=== PATIENT | male | born 1945 | race Caucasian/White ===

== ENCOUNTER → 2017-07-28 08:33 | Outpatient (CLI) | payer MEDICARE, OTHER, SELFPAY ==
[2017-07-28 09:57] LABS: Add Manual Diff / Slide Review NO; Eosinophils Percent Auto 4.8 % (2-4); Hematocrit 44.6 % (41-53); Hemoglobin 15.1 g/dL (13.5-17.5); Mean Corpuscular HGB Conc 33.8 % (30-36); Mean Corpuscular Hemoglobin 30.3 PG (26-34); Mean Corpuscular Volume 89.6 fL (80-100); Monocytes Percent Auto 10.2 % (3-14); Neutrophils Absolute Auto 1600 /uL (3000-5900); Platelet Count 209 X10^3/uL (150-400); Red Blood Cell Count 4.98 X10^6/uL (4.5-5.9); Red Cell Distribution Width 14.7 % (11.6-14.8); White Blood Cell Count 3.5 X10^3/uL (4.5-11.0)
[2017-07-28 10:19] LABS: INR 2.6 (0.9-1.3); Prothrombin Time 27.7 SECONDS (10.1-12.7)
== END ==
PROVIDERS: PCP Internal Medicine; Visit Provider Nurse Practitioner Gerontology
DX: I82.A11 Acute embolism and thrombosis of right axillary vein (principal); Z85.820 Personal history of malignant melanoma of skin
CPT/HCPCS: 36415; 85025; 85610

== ENCOUNTER → 2018-01-04 08:45 | Outpatient (CLI) | payer MEDICARE, OTHER, SELFPAY ==
[2018-01-04 09:03] LABS: Add Manual Diff / Slide Review NO; Basophils Percent Auto 1.4 % (0-2); Hematocrit 45.8 % (41-53); Hemoglobin 15.4 g/dL (13.5-17.5); Lymphocytes Percent Auto 33.2 % (25-40); Mean Corpuscular HGB Conc 33.6 % (30-36); Mean Corpuscular Hemoglobin 30.5 PG (26-34); Mean Corpuscular Volume 90.6 fL (80-100); Monocytes Percent Auto 10.1 % (3-14); Neutrophils Absolute Auto 2000 /uL (3000-5900); Neutrophils Percent Auto 50.3 % (50-75); Platelet Count 207 X10^3/uL (150-400); Red Blood Cell Count 5.05 X10^6/uL (4.5-5.9); Red Cell Distribution Width 14.6 % (11.6-14.8)
[2018-01-04 09:11] LABS: INR 2.1 (0.9-1.3); Prothrombin Time 22.8 SECONDS (10.1-12.7)
[2018-01-04 09:22] LABS: Alanine Aminotransferase 24 IU/L (21-72); Albumin Globulin Ratio 1.4 (1.0-2.8); Alkaline Phosphatase 42 U/L (38-126); Aspartate Aminotransferase 25 IU/L (17-59); Blood Urea Nitrogen 16 mg/dL (9-20); Calcium 8.7 mg/dL (8.4-10.2); Carbon Dioxide 25 mmol/L (22-32); Chloride 105 mmol/L (98-107); Estimated Glomerular Filt Rate > 60.0 mL/min (>60); Globulin 2.9 g/dL (1.7-4.1); Glucose 91 mg/dL (80-110); HEMOLYSIS < 15 (0-50); Potassium 4.1 mmol/L (3.4-5.1); Sodium 140 mmol/L (137-145); Total Protein 6.9 g/dL (6.3-8.2)
== END ==
PROVIDERS: Family Provider Internal Medicine; PCP Internal Medicine; Visit Provider Nurse Practitioner Gerontology
DX: I82.401 Acute embolism and thrombosis of unspecified deep veins of right lower extremity (principal); D68.52 Prothrombin gene mutation; Z79.01 Long term (current) use of anticoagulants
CPT/HCPCS: 36415; 80053; 85025; 85610

== ENCOUNTER 2018-01-07 11:30 | Oncology outpatient (ONC) | payer MEDICARE, OTHER, SELFPAY ==
--- NOTE | 2017-07-29 12:51 | ONC.APRN.PN ---
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 Doing quite well on Coumadin, INR remains therapeutic at 2.5. He checks INR at home on a home machine. Dr. Esteban his primary care provider manages his Coumadin. No complaints whatsoever on exam today. No red flags. Continue current dose of Coumadin 10 mg 5 days a week 7.5 mg Sundays and . Return to clinic in 6 months for provider visit CBC, PT/INR. If patient remains stable okay to refer back to primary care seeing as primary care is already managing Coumadin. Patient agrees with this plan of care. 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 He has a hx of recurrent RLE DVT. He continues on coumadin which he has been tolerating well with no adverse effects. he has a macine at home to check INR, he checks every [address] Esteban manages his coumadin. His INR has been therapeutic for several months now not requiring any dose changes. Since his last visit the patient was hospitalized here at [facility] with influenza and bacterial pneumonia. He required a 2 day hospital stay. He has now fully recovered. He recently returned from a 21 day [employer] cruise. No complaints whatsoever on exam today. As noted above INR has been within therapeutic range. No unexplained bleeding or bruising. No swelling. No shortness of breath or chest pain. No dizziness, lightheadedness. Activity tolerance is unchanged. Appetite is unchanged. Ed remains under the care of cardiology Dr Chow for AAA. per pt report stable. Past Medical History The patient's past medical history is significant for: 1) Rght lower extremity DVT in the setting of a heterozygous [id number] mutation carrier. Prothrombin 2 gene mutation identified on 07/07/2016. Diagnosis of DVT confirmed on 05/04/2016 with ultrasound. This reported an echogenic noncompressible thrombus within the mid and lower portions of the superficial femoral vein as well as the popliteal vein. The common femoral and deep femoral veins are normally compressible. Hypercoagulable workup dated 05/13/[address] Stephanie Esteban: Factor V mutation negative. Protein C and S antigen levels were normal at 113 (normal 70-140%) and 119 (normal 70-150), respectively. Dilute Kaleb viper venom test was elevated at 65 (normal is less than 46 seconds). Additional hypercoagulable workup on 07/07/2016 reporting no evidence of an anticardiolipin antibody, beta-2 glycoprotein antibody, antithrombin 3 activity normal at 101%. No evidence of a lupus anticoagulant based on corrected PT mix assay. CT of the chest abdomen pelvis with contrast on 07/07/2016 reporting no evidence of metastatic disease. Mild aneurysmal limitation of the ascending thoracic aorta noted. Patient had adverse skin reaction to rivaroxaban. Tolerates lovenox and warfarin. 2) Left lower extremity DVT 1994. Patient was immobile for two weeks prior to the diagnosis secondary to extensive right thigh skin graft while being treated for active melenoma between peroids [id number]. Patient had been on Coumadin for 5 years. 3) Malignant Melanoma diagnosed 1991 with multiple local recurrences in 1994. Status post treatment regimen with interferon three times/week for one year. Patient has been in remission since 2001. 4) mitral valve regurgitation. 5) aortic root dilatation. Results - Imaging Additional studies: Procedures Other incision with drainage of skin and subcutaneous tissue (12/17/10) Replacement of Left Hip Joint with Metal on Polyethylene Synthetic Substitute, Open Approach (09/12/16) Replacement of Right Hip Joint with Metal on Polyethylene Synthetic Substitute, Open Approach (04/03/16) Total knee replacement (11/22/12) Home Medications and Allergies Home Medications Medication Instructions Recorded Confirmed Type tamsulosin [Flomax] 2 cap PO HS #0 03/24/16 History aspirin 81 mg PO QDAY #0 07/15/16 History metoprolol succinate [Toprol XL] 25 mg PO HS #0 08/25/16 History levothyroxine [Synthroid] 25 mcg PO QDAY #0 01/30/17 History amoxicillin-pot clavulanate 875 mg PO BID #14 tab 04/05/17 Rx [Augmentin] oseltamivir [Tamiflu] 75 mg PO BID #4 cap 04/05/17 Rx warfarin [Coumadin] 7.5 mg PO 1700 #30 tab 04/05/17 Rx Allergies Allergy/AdvReac Type Severity Reaction Status Date / Time rivaroxaban [From XARELTO] Allergy Severe SKIN RASH Unverified 06/10/17 13:04 iodine [IODINE] AdvReac Severe NAUSEA/VOMITING, Unverified 06/10/17 13:04 TOPICAL APPLICATION OK Exam Narrative: well appearing - Constitutional positive no acute distress, positive average body habitus - Routine HEENT Exam Head: Present: normocephalic, atraumatic Eye: Present: EOMI, PERRL, normal accommodation ENT: Present: mucous membranes moist - Routine Neck Exam Present: supple. Absent: JVD, lymphadenopathy - Routine Respiratory Exam Present: Clear to auscultation bilaterally - Routine Cardiovascular Exam Present: RRR, S1, S2 - Routine Abdominal Exam Present: soft, normoactive bowel sounds. Absent: tenderness, distended, organomegaly - Routine Extremities Exam Absent: cyanosis, clubbing, edema, calf tenderness - Routine Skin Exam Present: intact, normal turgor. Absent: petechiae - Routine Neurological Exam Present: alert, oriented X3 - Routine Psychiatric Exam Present: normal affect
--- NOTE | 2017-07-29 12:56 | P.PNONC_ITS ---
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 Doing quite well on Coumadin, INR remains therapeutic at 2.5. He checks INR at home on a home machine. Dr. Esteban his primary care provider manages his Coumadin. No complaints whatsoever on exam today. No red flags. Continue current dose of Coumadin 10 mg 5 days a week 7.5 mg Sundays and . Return to clinic in 6 months for provider visit CBC, PT/INR. If patient remains stable okay to refer back to primary care seeing as primary care is already managing Coumadin. Patient agrees with this plan of care. 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 He has a hx of recurrent RLE DVT. He continues on coumadin which he has been tolerating well with no adverse effects. he has a macine at home to check INR, he checks every [address] Esteban manages his coumadin. His INR has been therapeutic for several months now not requiring any dose changes. Since his last visit the patient was hospitalized here at [facility] with influenza and bacterial pneumonia. He required a 2 day hospital stay. He has now fully recovered. He recently returned from a 21 day [employer] cruise. No complaints whatsoever on exam today. As noted above INR has been within therapeutic range. No unexplained bleeding or bruising. No swelling. No shortness of breath or chest pain. No dizziness, lightheadedness. Activity tolerance is unchanged. Appetite is unchanged. Ed remains under the care of cardiology Dr Chow for AAA. per pt report stable . Past Medical History The patient's past medical history is significant for: 1) Rght lower extremity DVT in the setting of a heterozygous [id number] mutation carrier. Prothrombin 2 gene mutation identified on 07/07/2016. Diagnosis of DVT confirmed on 05/04/2016 with ultrasound. This reported an echogenic noncompressible thrombus within the mid and lower portions of the superficial femoral vein as well as the popliteal vein. The common femoral and deep femoral veins are normally compressible. Hypercoagulable workup dated 05/13/[address] Stephanie Esteban: Factor V mutation negative. Protein C and S antigen levels were normal at 113 (normal 70-140%) and 119 (normal 70-150), respectively. Dilute Kaleb viper venom test was elevated at 65 (normal is less than 46 seconds). Additional hypercoagulable workup on 07/07/2016 reporting no evidence of an anticardiolipin antibody, beta-2 glycoprotein antibody, antithrombin 3 activity normal at 101%. No evidence of a lupus anticoagulant based on corrected PT mix assay. CT of the chest abdomen pelvis with contrast on 07/07/2016 reporting no evidence of metastatic disease. Mild aneurysmal limitation of the ascending thoracic aorta noted. Patient had adverse skin reaction to rivaroxaban. Tolerates lovenox and warfarin. 2) Left lower extremity DVT 1994. Patient was immobile for two weeks prior to the diagnosis secondary to extensive right thigh skin graft while being treated for active melenoma between peroids [id number]. Patient had been on Coumadin for 5 years. 3) Malignant Melanoma diagnosed 1991 with multiple local recurrences in 1994. Status post treatment regimen with interferon three times/week for one year. Patient has been in remission since 2001. 4) mitral valve regurgitation. 5) aortic root dilatation. Results - Imaging Additional studies: Procedures Other incision with drainage of skin and subcutaneous tissue (12/17/10) Replacement of Left Hip Joint with Metal on Polyethylene Synthetic Substitute, Open Approach (09/12/16) Replacement of Right Hip Joint with Metal on Polyethylene Synthetic Substitute, Open Approach (04/03/16) Total knee replacement (11/22/12) Home Medications and Allergies Home Medications Medication Instructions Recorded Confirmed Type tamsulosin [Flomax] 2 cap PO HS #0 03/24/16 History aspirin 81 mg PO QDAY #0 07/15/16 History metoprolol succinate [Toprol XL] 25 mg PO HS #0 08/25/16 History levothyroxine [Synthroid] 25 mcg PO QDAY #0 01/30/17 History amoxicillin-pot clavulanate 875 mg PO BID #14 tab 04/05/17 Rx [Augmentin] oseltamivir [Tamiflu] 75 mg PO BID #4 cap 04/05/17 Rx warfarin [Coumadin] 7.5 mg PO 1700 #30 tab 04/05/17 Rx Allergies Allergy/AdvReac Type Severity Reaction Status Date / Time rivaroxaban [From XARELTO] Allergy Severe SKIN RASH Unverified 06/10/17 13:04 iodine [IODINE] AdvReac Severe NAUSEA/VOMITING, Unverified 06/10/17 13:04 TOPICAL APPLICATION OK Exam Narrative: well appearing - Constitutional positive no acute distress, positive average body habitus - Routine HEENT Exam Head: Present: normocephalic, atraumatic Eye: Present: EOMI, PERRL, normal accommodation ENT: Present: mucous membranes moist - Routine Neck Exam Present: supple. Absent: JVD, lymphadenopathy - Routine Respiratory Exam Present: Clear to auscultation bilaterally - Routine Cardiovascular Exam Present: RRR, S1, S2 - Routine Abdominal Exam Present: soft, normoactive bowel sounds. Absent: tenderness, distended, organomegaly - Routine Extremities Exam Absent: cyanosis, clubbing, edema, calf tenderness - Routine Skin Exam Present: intact, normal turgor. Absent: petechiae - Routine Neurological Exam Present: alert, oriented X3 - Routine Psychiatric Exam Present: normal affect
[2017-07-29 13:49] VITALS: BP 132/78; PULSE 60; RESP 18; TEMP 36.3; O2SAT 98
[2017-07-29 13:53] VITALS: BP 132/78; PULSE 60; RESP 18; TEMP 36.3; O2SAT 98
[2018-01-07 11:41] VITALS: BP 120/88; PULSE 72; RESP 18; TEMP 36.3; O2SAT 98
--- NOTE | 2018-01-07 11:59 | P.PNONC_ITS ---
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 He has a hx of recurrent RLE DVT. He continues on coumadin which he has been tolerating well with no adverse effects. he has a macine at home to check INR, he checks every [address] Esteban manages his coumadin. His INR has been therapeutic for several months now not requiring any dose changes. No complaints whatsoever on exam today. As noted above INR has been within therapeutic range. No unexplained bleeding or bruising. No swelling. No shortness of breath or chest pain. No dizziness, lightheadedness. Activity tolerance is unchanged. Appetite is unchanged. Ed remains under the care of cardiology Dr Chow for AAA. per pt report stable . PCP is Dr Stephanie Esteban Past Medical History The patient's past medical history is significant for: 1) Rght lower extremity DVT in the setting of a heterozygous [id number] mutation carrier. Prothrombin 2 gene mutation identified on 07/07/2016. Diagnosis of DVT confirmed on 05/04/2016 with ultrasound. This reported an echogenic noncompressible thrombus within the mid and lower portions of the superficial femoral vein as well as the popliteal vein. The common femoral and deep femoral veins are normally compressible. Hypercoagulable workup dated 05/13/[address] Stephanie Esteban: Factor V mutation negative. Protein C and S antigen levels were normal at 113 (normal 70-140%) and 119 (normal 70-150), respectively. Dilute Kaleb viper venom test was elevated at 65 (normal is less than 46 seconds). Additional hypercoagulable workup on 07/07/2016 reporting no evidence of an anticardiolipin antibody, beta-2 glycoprotein antibody, antithrombin 3 activity normal at 101%. No evidence of a lupus anticoagulant based on corrected PT mix assay. CT of the chest abdomen pelvis with contrast on 07/07/2016 reporting no evidence of metastatic disease. Mild aneurysmal limitation of the ascending thoracic aorta noted. Patient had adverse skin reaction to rivaroxaban. Tolerates lovenox and warfarin. 2) Left lower extremity DVT 1994. Patient was immobile for two weeks prior to the diagnosis secondary to extensive right thigh skin graft while being treated for active melenoma between peroids [id number]. Patient had been on Coumadin for 5 years. 3) Malignant Melanoma diagnosed 1991 with multiple local recurrences in 1994. Status post treatment regimen with interferon three times/week for one year. Patient has been in remission since 2001. 4) mitral valve regurgitation. 5) aortic root dilatation. Home Medications and Allergies Home Medications Medication Instructions Recorded Confirmed Type tamsulosin [Flomax] 2 cap PO HS #0 03/24/16 History aspirin 81 mg PO QDAY #0 07/15/16 History metoprolol succinate [Toprol XL] 25 mg PO HS #0 08/25/16 History levothyroxine [Synthroid] 25 mcg PO QDAY #0 01/30/17 History warfarin [Coumadin] 40 mg PO 1700 01/07/18 History Allergies Allergy/AdvReac Type Severity Reaction Status Date / Time rivaroxaban [From XARELTO] Allergy Severe SKIN RASH Unverified 06/10/17 13:04 iodine [IODINE] AdvReac Severe NAUSEA/VOMITING, Unverified 06/10/17 13:04 TOPICAL APPLICATION OK Exam - Constitutional positive no acute distress - Routine HEENT Exam Eye: Present: conjunctivae pink. Absent: conjunctival icterus, scleral injection ENT: Present: mucous membranes moist, oropharynx clear - Routine Neck Exam Present: supple. Absent: lymphadenopathy - Routine Respiratory Exam Present: Clear to auscultation bilaterally. Absent: rales, rhonchi, wheezes - Routine Cardiovascular Exam Present: RRR. Absent: JVD - Routine Abdominal Exam Present: soft, normoactive bowel sounds. Absent: tenderness, distended, organomegaly - Routine Extremities Exam Absent: edema, calf tenderness - Routine Skin Exam Present: intact, normal turgor. 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 He has a hx of recurrent RLE DVT. he remains on coumadin he has a home machine he checks his INR it routinely is about 2.1- 2.3. INR today 2.1. No clinical signs or symptoms to suggest recurrent thrombosis. Per pt request will RTC in one year for provider visit cbc cmp INR - Time Spent with Patient 25 mins
== END 2018-01-08 12:00 ==
PROVIDERS: Family Provider Internal Medicine; PCP Internal Medicine; Visit Provider Nurse Practitioner Gerontology
DX: I82.401 Acute embolism and thrombosis of unspecified deep veins of right lower extremity (principal); D68.52 Prothrombin gene mutation; Z79.01 Long term (current) use of anticoagulants; Z85.820 Personal history of malignant melanoma of skin
CPT/HCPCS: 99214

== ENCOUNTER → 2018-12-14 10:32 | Outpatient (CLI) | payer MEDICARE, OTHER, SELFPAY ==
[2018-12-14 11:54] LABS: BUN Creatinine Ratio 18.9 (6-22); Blood Urea Nitrogen 17 mg/dL (9-20); Calcium 8.9 mg/dL (8.4-10.2); Carbon Dioxide 27 mmol/L (22-32); Chloride 104 mmol/L (98-107); Estimated Glomerular Filt Rate > 60.0 mL/min (>60); Glucose 87 mg/dL (80-110); HEMOLYSIS 15 (0-50); Potassium 4.4 mmol/L (3.4-5.1); Sodium 137 mmol/L (137-145)
== END ==
PROVIDERS: Family Provider Internal Medicine; PCP Internal Medicine; Visit Provider Internal Medicine Cardiovascular Disease
DX: R01.1 Cardiac murmur, unspecified (principal); I34.0 Nonrheumatic mitral (valve) insufficiency; I71.2 Thoracic aortic aneurysm, without rupture
CPT/HCPCS: 36415; 80048

== ENCOUNTER → 2018-12-30 08:55 | Outpatient (CLI) | payer MEDICARE, OTHER, SELFPAY ==
[2018-12-30 09:59] LABS: Alanine Aminotransferase 19 IU/L (21-72); Aspartate Aminotransferase 28 IU/L (17-59); Cholesterol 241 mg/dL (140-199); HDL Cholesterol 58 mg/dL (40-60); LDL Cholesterol Calculated 158 mg/dL (<100); Triglycerides 124 mg/dL (35-150)
[2018-12-30 10:34] LABS: TSH w/ Reflex to FT4 4.86 uIU/mL (0.47-4.68)
[2018-12-30 11:02] LABS: Free T4, Direct Thyroxine 0.88 ng/dL (0.78-2.19)
[2018-12-30 15:52] LABS: Prostate Specific Antigen 2.27 ng/mL (0.10-4.00)
== END ==
PROVIDERS: PCP Internal Medicine; Visit Provider Internal Medicine
DX: Z12.5 Encounter for screening for malignant neoplasm of prostate (principal); E78.5 Hyperlipidemia, unspecified; E03.9 Hypothyroidism, unspecified
CPT/HCPCS: 36415; 80061; 84153; 84439; 84443; 84450; 84460; G0103

== ENCOUNTER → 2019-03-03 09:04 | Outpatient (CLI) | payer MEDICARE, OTHER, SELFPAY ==
[2019-03-03 10:10] LABS: Alanine Aminotransferase 24 IU/L (<50); Aspartate Aminotransferase 27 IU/L (17-59); Cholesterol 180 mg/dL (140-199); HDL Cholesterol 61 mg/dL (40-60); LDL Cholesterol Calculated 99 mg/dL (<100); Triglycerides 101 mg/dL (35-150)
[2019-03-03 10:44] LABS: TSH w/ Reflex to FT4 2.34 uIU/mL (0.47-4.68)
== END ==
PROVIDERS: PCP Internal Medicine; Visit Provider Internal Medicine
DX: E78.5 Hyperlipidemia, unspecified (principal)
CPT/HCPCS: 36415; 80061; 84443; 84450; 84460

== ENCOUNTER 2019-04-06 08:20 | Day surgery (SDC) | payer MEDICARE, OTHER, SELFPAY ==
--- NOTE | 2019-04-06 | PATH_ITS ---
[facility] Accession Number: [id number] . 01 Material submitted: . PART A: colon - ASCENDING COLON POLYP X2 PART B: colon - DESCENDING COLON POLYP . 02 Diagnosis: A. Ascending Colon, Polyps x2, Biopsies: Sessile serrated adenomas. . B. Descending Colon, Polyp, Biopsy: Tubular adenoma. MRV 04/07/2019 1516 Local . 02 Electronically signed: . Leanna Duval MD, Pathologist NPI- [id number] . 01 Gross description: . Part A: ASCENDING COLON POLYP X2: Received in formalin are multiple fragment(s) of garcia, soft tissue measuring 0.1 x 0.1 x 0.1 cm to 0.6 x 0.4 x 0.4 cm submitted entirely in 1 cassette(s) Part B: DESCENDING COLON POLYP: Received in formalin is 1 fragment(s) of garcia, soft tissue measuring 0.4 x 0.3 x 0.2 cm submitted entirely in 1 cassette(s) /[facility] 04/06/2019 1938 Local . 02 Pathologist provided ICD-10: D12.2, D12.4 . 02 CPT . 777511, [id number] Performed at: 01 [facility] [address], [place], [place] [id number] MD Denys Post MD Phone: [phone] Performed at: 02 [facility] [address] [place], [place] [id number] MD Leanna Duval MD Phone: [phone]
[2019-04-06 08:36] VITALS: BP 144/81; PULSE 78; RESP 16; TEMP 36.2; O2SAT 97; BMI 33.2
[2019-04-06] MEDS: SODIUM CHLORIDE 0.9% 1,000 ML 84 ML IV (08:45)
--- NOTE | 2019-04-06 10:01 | PM.HP.1 ---
History of Present Illness History of Present Illness Chief complaint: [id number] SCREENING COLONOSCOPY Patient History Family & Social History Social History: household members spouse Tobacco & Substance use: Smoking Status Never smoker alcohol intake frequency a few times a week Substance Use Type does not use Meds Home Medications and Allergies Home Medications Medication Instructions Recorded Confirmed Type tamsulosin [Flomax] 2 cap PO HS #0 03/24/16 04/06/19 History aspirin 81 mg PO QDAY #0 07/15/16 04/06/19 History metoprolol succinate [Toprol XL] 25 mg PO HS #0 08/25/16 04/06/19 History levothyroxine [Synthroid] 25 mcg PO QDAY #0 01/30/17 04/06/19 History warfarin [Coumadin] 40 mg PO 1700 01/07/18 04/06/19 History Allergies Allergy/AdvReac Type Severity Reaction Status Date / Time rivaroxaban [From XARELTO] Allergy Severe SKIN RASH Verified 04/06/19 08:31 iodine [IODINE] AdvReac Severe NAUSEA/VOMITING, Verified 04/06/19 08:31 TOPICAL APPLICATION OK Review of Systems Review of Systems ROS: Yes All systems reviewed with the patient and are negative except as otherwise documented Exam Vital Signs (past 8 hours): - 04/06/19 08:36 Temperature 97.2 F L Pulse Rate 78 Respiratory Rate 16 Blood Pressure 144/81 H Pulse Oximetry 97 Oxygen Delivery Method Room Air Narrative Exam Narrative: Awake alert and oriented x3, no acute distress, lungs clear to auscultation bilaterally, heart regular rate and rhythm, no lower extremity edema Assessment & Plan Assessment & Plan narrative: Colon cancer screening, for colonoscopy
[2019-04-06] MEDS: MIDAZOLAM 5 MG/5 ML VIAL IV (10:16)
[2019-04-06] MEDS: fentaNYL 250 MCG/5 ML INJ IV (10:16)
[2019-04-06 10:46] VITALS: BP 131/75; PULSE 56; RESP 17; TEMP 36.1; O2SAT 97
--- NOTE | 2019-04-06 10:50 | PM.OP.ENDO ---
Operative Date/Time/Diagnoses Date of procedure: 04/06/19 Procedure & Clinicians Study performed: Colonoscopy with snare polypectomy Moderate conscious sedation was administered by the endoscopy nurse and supervised by the endoscopist. The following parameters were monitored: Oxygen saturation, heart rate, blood pressure, and response to care. Sedation totals: 5 mg midazolam, 100 mcg fentanyl Indications: Colon cancer screening. No prior colonoscopy Procedure Notes Procedure in detail: Prior to the procedure, history and physical was performed, and patient medications and allergies were reviewed. Preprocedure nursing history and assessment was reviewed. Patient identification and proposed procedure were verified by the physician and nurse in the procedure room. The physical status of the patient was reassessed after the procedure. After informed consent was obtained including risks, benefits, and alternatives, the scope was passed under direct vision. Throughout the procedure, the patient's blood pressure, pulse, and oxygen saturations were monitored continuously. The colonoscope was introduced through the anus and advanced to the cecum as identified by the appendiceal orifice and ileocecal valve. The patient tolerated the procedure well. Bowel prep was deemed adequate to detect polyps greater than 5 mm, but prep was fair prior to lavage. Digital rectal examination and perianal examination were unremarkable. Retroflexion in the rectum was unrevealing. A 16 mm sessile polyp in the ascending colon was injected for lift with saline and removed in piecemeal with a hot and cold snare. Polypectomy was complete and tissue was retrieved. Two hemoclips were applied to the polypectomy site to prevent bleeding (MRI conditional) Two 5 mm sessile polyps were removed from the ascending and descending colon with a cold snare and retrieved. A few medium mouth diverticula were noted in the sigmoid colon Impression: 16 mm polyp removed from the ascending colon. Two Hemoclips applied to the polypectomy site to prevent bleeding Two 5 mm polyps removed from the ascending and descending colon Sigmoid colon diverticulosis Sedation minutes: 38 Complications: other (EBL minimal. No complications) Post-procedure Plan for aftercare: Follow-up pathology results Repeat colonoscopy at a date to be determined based on pathology results High fiber diet Resume all medications Resume Coumadin tomorrow Discharge home with escort
[2019-04-06 10:51] VITALS: BP 122/79; PULSE 73; RESP 15; O2SAT 98
[2019-04-06 10:56] VITALS: BP 126/64; PULSE 58; RESP 13; O2SAT 99
[2019-04-06 11:10] VITALS: BP 137/80; PULSE 59; RESP 14; TEMP 36.1; O2SAT 96
== END 2019-04-06 10:22 | disposition home or self-care (01) ==
PROVIDERS: PCP Internal Medicine; Referring Provider Internal Medicine; Visit Provider Internal Medicine
PROC: 0DJD8ZZ Inspection of Lower Intestinal Tract, Via Natural or Artificial Opening Endoscopic (ICD-10-PCS; CPT 45378; principal; 2019-04-06 09:30)
DX: Z12.11 Encounter for screening for malignant neoplasm of colon (principal); D75.9 Disease of blood and blood-forming organs, unspecified; Z86.718 Personal history of other venous thrombosis and embolism; Z79.01 Long term (current) use of anticoagulants; K57.30 Diverticulosis of large intestine without perforation or abscess without bleeding; D12.2 Benign neoplasm of ascending colon; D12.4 Benign neoplasm of descending colon
CPT/HCPCS: 45385; 45381; J2250; J3010

== ENCOUNTER → 2020-01-17 14:39 | Outpatient (ROUT) | payer MEDICARE, OTHER, SELFPAY ==
[2020-01-17 14:58] LABS: Alanine Aminotransferase 24 IU/L (<50); Albumin 4.1 g/dL (3.5-5.0); Albumin Globulin Ratio 1.4 (1.0-2.8); Alkaline Phosphatase 56 U/L (38-126); Aspartate Aminotransferase 31 IU/L (17-59); BUN Creatinine Ratio 19.5 (6-22); Bilirubin Total 1.3 mg/dL (0.2-1.3); Blood Urea Nitrogen 17 mg/dL (9-20); Calcium 9.1 mg/dL (8.4-10.2); Carbon Dioxide 29 mmol/L (22-32); Chloride 107 mmol/L (98-107); Cholesterol 175 mg/dL (140-199); Estimated Glomerular Filt Rate > 60.0 mL/min (>60); Globulin 2.9 g/dL (1.7-4.1); Glucose 91 mg/dL (80-110); HDL Cholesterol 62 mg/dL (40-60); HEMOLYSIS < 15 (0-50); LDL Cholesterol Calculated 94 mg/dL (<100); Potassium 4.6 mmol/L (3.4-5.1); Sodium 139 mmol/L (137-145); Triglycerides 93 mg/dL (35-150)
[2020-01-17 15:27] LABS: TSH w/ Reflex to FT4 3.02 uIU/mL (0.47-4.68)
== END ==
PROVIDERS: PCP Internal Medicine; Visit Provider Internal Medicine
DX: E78.5 Hyperlipidemia, unspecified (principal); E03.9 Hypothyroidism, unspecified; I10 Essential (primary) hypertension
CPT/HCPCS: 80053; 80061; 84443

== ENCOUNTER → 2020-03-29 08:34 | Outpatient (CLI) | payer MEDICARE, OTHER, SELFPAY ==
[2020-03-29 09:38] LABS: Appearance Urine UA SL CLOUDY; Bilirubin Urine UA NEGATIVE (NEGATIVE); Color Urine UA YELLOW; Glucose Urine UA NEGATIVE (Negative); Ketones Urine UA NEGATIVE (NEGATIVE); Leukocyte Esterase Urine UA 2+ (NEGATIVE); Nitrite Urine UA POSITIVE (Negative); Occult Blood Urine UA TRACE-INTACT (Negative); Protein Urine UA NEGATIVE (Negative); Urobilinogen Urine UA 0.2 E.U./dL (0.2)
[2020-03-29 10:16] LABS: RBC Urine 1-5/HPF (0-5/HPF)
[2020-03-29 10:17] LABS: Bacteria Urine Many (>30); Culture Indicated Urine Specimen Cultured; WBC Urine 10-30/HPF (0-5/HPF)
== END ==
PROVIDERS: PCP Internal Medicine; Referring Provider Student in an Organized Health Care Education/Training Program; Visit Provider Student in an Organized Health Care Education/Training Program
DX: N40.1 Benign prostatic hyperplasia with lower urinary tract symptoms (principal)
CPT/HCPCS: 81001; 87077; 87086; 87186

== ENCOUNTER → 2020-07-31 14:43 | Outpatient (ROUT) | payer MEDICARE, OTHER, SELFPAY ==
[2020-07-31 15:12] LABS: Alanine Aminotransferase 27 IU/L (<50); Albumin 3.7 g/dL (3.5-5.0); Albumin Globulin Ratio 1.4 (1.0-2.8); Alkaline Phosphatase 49 U/L (38-126); Aspartate Aminotransferase 32 IU/L (17-59); Bilirubin Total 1.1 mg/dL (0.2-1.3); Blood Urea Nitrogen 18 mg/dL (9-20); Calcium 9.1 mg/dL (8.4-10.2); Carbon Dioxide 29 mmol/L (22-32); Chloride 104 mmol/L (98-107); Estimated Glomerular Filt Rate > 60.0 mL/min (>60); Globulin 2.7 g/dL (1.7-4.1); Glucose 81 mg/dL (80-110); HEMOLYSIS < 15 (0-50); Potassium 4.4 mmol/L (3.4-5.1); Sodium 138 mmol/L (137-145); Total Protein 6.4 g/dL (6.3-8.2)
== END ==
PROVIDERS: PCP Internal Medicine; Visit Provider Internal Medicine
DX: R11.0 Nausea (principal)
CPT/HCPCS: 80053

== ENCOUNTER → 2020-11-19 16:41 | Outpatient (CLI) | payer MEDICARE, OTHER, SELFPAY ==
[2020-11-19 17:30] LABS: Add Manual Diff / Slide Review NO; Basophils Absolute Auto 100 /uL (0-100); Basophils Percent Auto 1.2 % (0-2); Eosinophils Absolute Auto 300 /uL (0-450); Eosinophils Percent Auto 4.1 % (2-4); Hematocrit 43.1 % (41-53); Hemoglobin 14.1 g/dL (13.5-17.5); Lymphocytes Absolute Auto 1900 /uL (1100-4500); Lymphocytes Percent Auto 26.5 % (25-40); Mean Corpuscular HGB Conc 32.8 % (30-36); Mean Corpuscular Hemoglobin 29.9 PG (26-34); Mean Corpuscular Volume 90.9 fL (80-100); Monocytes Absolute Auto 800 /uL (0-900); Monocytes Percent Auto 11.1 % (3-14); Neutrophils Absolute Auto 4000 /uL (1500-7000); Neutrophils Percent Auto 57.1 % (50-75); Platelet Count 233 X10^3/uL (150-400); Red Blood Cell Count 4.73 X10^6/uL (4.5-5.9); Red Cell Distribution Width 14.3 % (11.6-14.8)
== END ==
PROVIDERS: PCP Internal Medicine; Referring Provider Naturopath; Visit Provider Naturopath
DX: Z08 Encounter for follow-up examination after completed treatment for malignant neoplasm (principal); Z85.820 Personal history of malignant melanoma of skin
CPT/HCPCS: 36415; 85025

== ENCOUNTER → 2020-12-25 09:20 | Outpatient (CLI) | payer MEDICARE, OTHER, SELFPAY ==
[2020-12-25 10:18] LABS: Alanine Aminotransferase 23 IU/L (<50); Albumin 3.9 g/dL (3.5-5.0); Albumin Globulin Ratio 1.5 (1.0-2.8); Alkaline Phosphatase 49 U/L (38-126); Aspartate Aminotransferase 27 IU/L (17-59); Bilirubin Total 0.7 mg/dL (0.2-1.3); Bilirubin Unconjugated 0.7 mg/dL (0.0-1.1); Globulin 2.6 g/dL (1.7-4.1); HEMOLYSIS < 15 (0-50); Total Protein 6.5 g/dL (6.3-8.2)
== END ==
PROVIDERS: Family Provider Internal Medicine; PCP Internal Medicine; Referring Provider Physician Assistant; Visit Provider Physician Assistant
DX: B35.1 Tinea unguium (principal)
CPT/HCPCS: 36415; 80076

== ENCOUNTER → 2021-01-01 12:28 | Outpatient (CLI) | payer MEDICARE, OTHER, SELFPAY ==
--- NOTE | 2021-01-01 12:29 | DI.US.S_ITS ---
PROCEDURE: US ABDOMEN LIMITED INDICATIONS: Left abdominal wall subcu mass, h/o met melanoma TECHNIQUE: Real-time focused scanning was performed of the abdomen, with image documentation. COMPARISON: None. FINDINGS: Focused ultrasound examination of left lateral abdominal wall shows a 4 x 2.5 x 5.8 cm structure isoechoic to adjacent subcutaneous fat and show no internal vascularity. IMPRESSION: Finding likely represent lipoma in left lateral abdominal wall. Clinical and sonographic follow-up is recommended. Dictated by: Narinder Martin M.D. on 01/01/2021 at 13:52 Approved by: Narinder Martin M.D. on 01/01/2021 at 13:53
== END ==
PROVIDERS: Family Provider Internal Medicine; PCP Internal Medicine; Referring Provider Internal Medicine Hematology & Oncology; Visit Provider Internal Medicine Hematology & Oncology
DX: R22.2 Localized swelling, mass and lump, trunk (principal); Z85.820 Personal history of malignant melanoma of skin; C79.9 Secondary malignant neoplasm of unspecified site
CPT/HCPCS: 76705

== ENCOUNTER 2021-01-28 08:17 | Emergency (ER) | payer MEDICARE, OTHER, SELFPAY ==
[2021-01-28 08:31] VITALS: BP 133/86; PULSE 57; RESP 18; O2SAT 96; BMI 33.8
--- NOTE | 2021-01-28 08:43 | DI.RAD.S_ITS ---
PROCEDURE: XR MANDIBLE MIN 4V INDICATIONS: Right side pain TECHNIQUE: 4 views of the mandible were acquired. COMPARISON: None. FINDINGS: Bones: No fractures or dislocations. No suspicious bony lesions. Age-appropriate bony degenerative changes are seen. Soft tissues: Visualized sinuses appear clear. No suspicious soft tissue densities. IMPRESSION: No significant plain film abnormality is seen. If it would be helpful for clinical management decision making in this patient with this given history, please consider a dedicated maxillofacial CT or TMJ protocol MRI for further evaluation (assuming that there is no contraindication). Dictated by: Kobi De Oliveira M.D. on 01/28/2021 at 8:18 Approved by: Kobi De Oliveira M.D. on 01/28/2021 at 8:20
--- NOTE | 2021-01-28 08:43 | ED.GENADULT ---
HPI - General Adult General Chief complaint: Dental/Oral Stated complaint: Swelling rt side of face, can't close jaw Time Seen by Provider: 01/28/21 08:32 History of Present Illness HPI narrative: Patient here with . Complains of right jaw pain that started yesterday and worsened over night. Has not take any medications for this. Patient has focal localized pain at the TMJ joint on the right side. No rash. Hurts to move and open the mouth. No known injury. No dental pain. No facial swelling. No hearing changes/ear pain Related Data Home Medications Medication Instructions Recorded Confirmed aspirin 81 mg tablet,delayed 81 mg PO QDAY #0 07/15/16 01/17/21 release metoprolol succinate 25 mg 25 mg PO HS #0 08/25/16 01/17/21 tablet,extended release 24 hr (Toprol XL) levothyroxine 25 mcg tablet 25 mcg PO QDAY #0 01/30/17 01/17/21 (Synthroid) warfarin 5 mg tablet (Coumadin) 40 mg PO 1700 01/07/18 01/17/21 atorvastatin 10 mg tablet 10 mg PO DAILY 12/27/20 01/17/21 coenzyme Q10 100 mg capsule 100 mg PO DAILY 12/27/20 01/17/21 (CoQ-10) ketoconazole 2 % topical cream 1 applic TOPICAL DAILY 12/27/20 01/17/21 terbinafine HCl 250 mg tablet 250 mg PO DAILY 12/27/20 01/17/21 Previous Rx's Medication Instructions Recorded hydrocodone 5 mg-acetaminophen 325 1 tab PO Q6H PRN #16 tab 01/28/21 mg tablet ondansetron 4 mg disintegrating 4 mg PO Q8H PRN #10 tab 01/28/21 tablet Allergies Allergy/AdvReac Type Severity Reaction Status Date / Time rivaroxaban [From XARELTO] Allergy Severe SKIN RASH Verified 04/06/19 08:31 iodine [IODINE] AdvReac Severe NAUSEA/VOMITING, Verified 04/06/19 08:31 TOPICAL APPLICATION OK Review of Systems Review of Systems Narrative: GENERAL: Denies chills, fatigue, malaise, fever, sweats. 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 EYES: Pupils equal round No scleral icterus. ENT: Mucous membranes moist. No dental tenderness or intraoral swelling or abscess. Face is grossly symmetric. There is focal tenderness to the right TMJ joint. Pain with opening mouth but there is no trismus or malocclusion. No tongue elevation. Examination right ear TM is clear. Tragus nontender. No canal swelling or discharge or edema or erythema. No rash on the right side face. No right temporal tenderness. NECK: Trachea midline. No submandibular tenderness or swelling or erythema. NEURO: AOx4. SKIN: Warm and dry PSYCH: Not anxious, is cooperative Initial Vital Signs Initial Vital Signs: Vital Signs Pulse Rate 57 L 01/28/21 08:31 Respiratory Rate 18 01/28/21 08:31 Blood Pressure 133/86 01/28/21 08:31 Pulse Oximetry 96 01/28/21 08:31 Course Course Course Narrative: No new issues during course of stay. Orders Ordered: Discontinued Medications Hydrocodone Bitart/Acetaminophen (Hydrocodone/Acet 5/325 Tablet) 1 tab PO NOW ONE Stop: 01/28/21 08:42 Last Admin: 01/28/21 08:52 Dose: 1 tab Documented by: FERNANDA Ondansetron HCl (Ondansetron 4 Mg Odt) 4 mg SL NOW ONE Stop: 01/28/21 08:42 Last Admin: 01/28/21 08:52 Dose: 4 mg Documented by: FERNANDA Reevaluation(s) Reevaluation #1: Reviewed results with patient and . Pain has improved. They agree for follow-up with Oral maxillofacial provided. Referral given. Vital Signs Vital signs: Vital Signs - 8 hr 01/28/21 08:31 Pulse Rate 57 L Respiratory Rate 18 Blood Pressure 133/86 Pulse Oximetry 96 Medical Decision Making Differential Diagnosis Differential Diagnosis: Herpes zoster/otitis externa/temporal arteritis/TMJ. Imaging Data X-ray mandible: Radiologist's Impression: [address] [address] XRay Report Signed Patient: Solomon Ma MR#: [id number] : 1945 Acct:[id number] Age/Sex: 75 / M Date of Service: 01/28/21 Loc: ED Accession Number: [id number] ?? Procedure: XR mandible min 4V Ordering Provider: Mika Morris MD PROCEDURE:? XR MANDIBLE MIN 4V ? INDICATIONS:? Right side pain ? TECHNIQUE:? 4 views of the mandible were acquired.? ? COMPARISON:? None. ? FINDINGS:? ? Bones:? No fractures or dislocations.? No suspicious bony lesions.? Age-appropriate bony degenerative changes are seen.? ? Soft tissues:? Visualized sinuses appear clear.? No suspicious soft tissue densities.? IMPRESSION:? No significant plain film abnormality is seen. ? If it would be helpful for clinical management decision making in this patient with this given history, please consider a dedicated maxillofacial CT or TMJ protocol MRI for further evaluation (assuming that there is no contraindication).? ? ? Dictated by: Kobi De Oliveira M.D. on 01/28/2021 at 8:18 ? ? Approved by: Kobi De Oliveira M.D. on 01/28/2021 at 8:20 ? MDM Narrative Medical decision making narrative: Upper for discharge home. Patient likely has TMJ. Referral for oral maxillofacial given. Pain has improved. No laboratory studies indicated this time. Return precautions reviewed with patient and and they agree with treatment plan. Pain medication provided as patient is on warfarin, not able tolerate NSAIDs Discharge Plan Departure Patient Disposition: Home Clinical Impression: Jaw pain Instructions: DI for Temporomandibular Disorder Activity Restrictions/Additional Instructions: No driving operating machinery today or when taking prescribed pain medication. Call provided oral surgeon today to make appointment for re-evaluation of your jaw pain. Return if worsening questions concerns or any development of a rash to the face. Prescriptions: New hydrocodone-acetaminophen 5-325 mg tablet 1 tab PO Q6H PRN (Reason: pain) Qty: 16 0RF ondansetron 4 mg tablet,disintegrating 4 mg PO Q8H PRN (Reason: nausea and vomiting) Qty: 10 0RF No Action aspirin 81 MG tablet,delayed release (DR/EC) 81 mg PO QDAY Qty: 0 0RF metoprolol succinate [Toprol XL] 25 MG tablet extended release 24 hr 25 mg PO HS Qty: 0 0RF levothyroxine [Synthroid] 25 MCG tablet 25 mcg PO QDAY Qty: 0 0RF atorvastatin 10 mg Tablet 10 mg PO DAILY 0RF terbinafine HCl 250 mg Tablet 250 mg PO DAILY 0RF ketoconazole 2 % Cream 1 applic TOPICAL DAILY 0RF coenzyme Q10 [CoQ-10] 100 mg Capsule 100 mg PO DAILY 0RF warfarin [Coumadin] 5 MG tablet 40 mg PO 1700 0RF Rx Instructions: 7.5mg x 5 days, 10 mg x 2 days Referrals: Bayron Yo DMD [Physician] - Stephanie Esteban MD [Primary Care Provider] -
[2021-01-28] MEDS: ONDANSETRON 4 MG ODT SL (08:52)
[2021-01-28] MEDS: HYDROCODONE/ACET 5/325 TABLET 1 TAB PO (08:52)
--- NOTE | 2021-01-28 08:57 | PC.NURSE ---
pt states its difficult to shut his mouth, or have his teeth touch on the rt side.
[2021-01-28 09:48] VITALS: BP 148/70; PULSE 54; RESP 18; O2SAT 94
== END 2021-01-28 09:49 | disposition home or self-care (01) ==
PROVIDERS: Emergency Provider Emergency Medicine; Family Provider Internal Medicine; PCP Internal Medicine
DX: R68.84 Jaw pain (principal)
CPT/HCPCS: 70110; 99283

== ENCOUNTER → 2021-03-04 15:57 | Outpatient (CLI) | payer MEDICARE, OTHER, SELFPAY ==
[2021-03-04 16:49] LABS: Add Manual Diff / Slide Review NO; Basophils Absolute Auto 0 /uL (0-100); Basophils Percent Auto 0.2 % (0-2); Eosinophils Absolute Auto 100 /uL (0-450); Eosinophils Percent Auto 2.4 % (2-4); Hematocrit 43.2 % (41-53); Hemoglobin 14.6 g/dL (13.5-17.5); Lymphocytes Absolute Auto 1600 /uL (1100-4500); Lymphocytes Percent Auto 25.5 % (25-40); Mean Corpuscular HGB Conc 33.7 % (30-36); Mean Corpuscular Volume 89.1 fL (80-100); Monocytes Absolute Auto 600 /uL (0-900); Monocytes Percent Auto 9.5 % (3-14); Neutrophils Absolute Auto 3800 /uL (1500-7000); Neutrophils Percent Auto 62.4 % (50-75); Platelet Count 241 X10^3/uL (150-400); Red Blood Cell Count 4.85 X10^6/uL (4.5-5.9); Red Cell Distribution Width 15.4 % (11.6-14.8); White Blood Cell Count 6.2 X10^3/uL (4.5-11.0)
== END ==
PROVIDERS: Family Provider Internal Medicine; PCP Internal Medicine; Referring Provider Physician Assistant; Visit Provider Physician Assistant
DX: Z08 Encounter for follow-up examination after completed treatment for malignant neoplasm (principal); Z85.820 Personal history of malignant melanoma of skin
CPT/HCPCS: 36415; 85025

== ENCOUNTER → 2021-03-25 09:55 | Outpatient (CLI) | payer MEDICARE, OTHER, SELFPAY ==
[2021-03-25 11:27] LABS: Alanine Aminotransferase 22 IU/L (<50); Albumin 4.1 g/dL (3.5-5.0); Albumin Globulin Ratio 1.4 (1.0-2.8); Alkaline Phosphatase 42 U/L (38-126); Aspartate Aminotransferase 34 IU/L (17-59); Bilirubin Unconjugated 1.1 mg/dL (0.0-1.1); Globulin 2.9 g/dL (1.7-4.1); HEMOLYSIS < 15 (0-50)
== END ==
PROVIDERS: Family Provider Internal Medicine; PCP Internal Medicine; Referring Provider Physician Assistant; Visit Provider Physician Assistant
DX: B35.1 Tinea unguium (principal)
CPT/HCPCS: 36415; 80076

== ENCOUNTER → 2021-03-29 10:22 | Outpatient (CLI) | payer MEDICARE, OTHER, SELFPAY ==
--- NOTE | 2021-03-29 | DI.RAD.S_ITS ---
PROCEDURE: XR CHEST 2V INDICATIONS: Other chest pain TECHNIQUE: 2 views of the chest were acquired. COMPARISON: [facility], , CHEST 2 VIEW, 04/04/2017, 14:19. FINDINGS: Surgical changes and devices: Surgical clips are redemonstrated in the right chest wall. Lungs and pleura: There is hyperinflation of the lungs with flattening of the hemidiaphragms suggestive of COPD. No acute consolidation. No pleural effusions or pneumothorax. Mediastinum: Mediastinal contours are normal. Heart size is normal. Bones and chest wall: No suspicious bony abnormalities. Soft tissues appear unremarkable. IMPRESSION: 1. No acute cardiopulmonary disease. 2. Findings suggestive of COPD. Dictated by: Denys Blackburn M.D. on 03/29/2021 at 13:08 Approved by: Denys Blackburn M.D. on 03/29/2021 at 13:10
== END ==
PROVIDERS: Family Provider Internal Medicine; PCP Internal Medicine; Referring Provider Internal Medicine Cardiovascular Disease; Visit Provider Internal Medicine Cardiovascular Disease
DX: R07.89 Other chest pain (principal); I34.0 Nonrheumatic mitral (valve) insufficiency; I71.2 Thoracic aortic aneurysm, without rupture
CPT/HCPCS: 71046

== ENCOUNTER → 2023-07-21 15:15 | Outpatient (CLI) | payer MEDICARE, OTHER, SELFPAY ==
[2023-07-21 17:38] LABS: Hemoglobin 14.8 g/dL (13.5-17.5); Mean Corpuscular HGB Conc 33.5 % (30-36); Mean Corpuscular Hemoglobin 30.2 PG (26-34); Mean Corpuscular Volume 90.1 fL (80-100); Platelet Count 220 X10^3/uL (150-400); Red Blood Cell Count 4.89 X10^6/uL (4.5-5.9); Red Cell Distribution Width 14.8 % (11.6-14.8); White Blood Cell Count 6.3 X10^3/uL (4.5-11.0)
[2023-07-21 18:03] LABS: Alanine Aminotransferase 22 IU/L (<50); Albumin 4.3 g/dL (3.5-5.0); Albumin Globulin Ratio 1.5 (1.0-2.8); Alkaline Phosphatase 53 U/L (38-126); Aspartate Aminotransferase 32 IU/L (17-59); BUN Creatinine Ratio 17.1 (6-22); Bilirubin Total 1.1 mg/dL (0.2-1.3); Blood Urea Nitrogen 19 mg/dL (9-20); Calcium 8.9 mg/dL (8.4-10.2); Carbon Dioxide 27 mmol/L (22-32); Chloride 107 mmol/L (98-107); Estimated Glomerular Filt Rate > 60 mL/min (>60); Globulin 2.8 g/dL (1.7-4.1); Glucose 83 mg/dL (80-110); HEMOLYSIS < 15 (0-50); Potassium 4.7 mmol/L (3.4-5.1); Sodium 140 mmol/L (137-145); Total Protein 7.1 g/dL (6.3-8.2)
[2023-07-21 18:06] LABS: NT-proBNP (BNP-Adult 18+) 297 pg/mL (<450)
[2023-07-21 18:26] LABS: Thyroid Stimulating Hormone 7.06 uIU/mL (0.47-4.68)
== END ==
LOC: LAB 15:18
PROVIDERS: PCP Internal Medicine; Referring Provider Nurse Practitioner; Visit Provider Nurse Practitioner
DX: R42 Dizziness and giddiness (principal); R06.09 Other forms of dyspnea; I10 Essential (primary) hypertension; I34.0 Nonrheumatic mitral (valve) insufficiency
CPT/HCPCS: 36415; 80053; 83880; 84443; 85027

== ENCOUNTER 2023-08-06 10:07 | Emergency (ER) | payer MEDICARE, OTHER, SELFPAY ==
--- NOTE | 2023-08-06 10:10 | ED.LOWEXIN ---
HPI - Extremity Injury (Lower) General Chief Complaint: Extremity Injury, Lower Stated Complaint: R Hip Severe Pain, Chills Time Seen by Provider: 08/06/23 10:09 History of Present Illness HPI Narrative: 77-year-old male with history of remote melanoma surgery, prior blood clots to legs, protein C deficiency, chronic warfarin anticoagulation, status post bilateral hip replacement surgeries, right hip replacement surgery from arthritis done 2017 Dr. Freedman, was quite active yesterday, no fall or blunt injury recalled, but has increasing pain to the right hip. No sensation of subluxation or dislocation relocation. Denies pain to remainder of right lower extremity at distal thigh, knee, foreleg, ankle, foot, toes. Denies pain to neck, arms, left hip. No fevers or chills. Related Data Home Medications Medication Instructions Recorded Confirmed losartan 25 mg tablet 25 mg PO DAILY 08/06/23 08/06/23 metoprolol succinate 25 mg 25 mg PO DAILY 08/06/23 08/06/23 tablet,extended release 24 hr rosuvastatin 5 mg tablet 5 mg PO DAILY 08/06/23 08/06/23 warfarin 7.5 mg tablet 7.5 mg PO DAILY 08/06/23 08/06/23 Previous Rx's Medication Instructions Recorded tramadol 25 mg tablet 25 mg PO Q6H PRN pain #20 tabs 08/06/23 Allergies Allergy/AdvReac Type Severity Reaction Status Date / Time rivaroxaban [From XARELTO] Allergy Severe SKIN RASH Verified 04/02/21 11:02 iodine [IODINE] AdvReac Severe NAUSEA/VOMITING, Verified 04/02/21 11:02 TOPICAL APPLICATION OK Patient History Medical History DVT, lower extremity (~2017) Hyperlipidemia Hypothyroidism Mitral regurgitation Prothrombin [id number] mutation Thoracic aortic aneurysm without rupture Surgical History H/O right mastectomy History of knee replacement procedure of left knee S/P hip replacement Family History Mother Lung cancer Social History household members: spouse Smoking Status: Never smoker alcohol intake: current (beer a week) substance use type: does not use Smoking Status: Never smoker alcohol intake frequency: a few times a week Substance Use Type: does not use Exam Narrative Exam Narrative: GENERAL: Well-developed patient, in mild distress. HEAD: Atraumatic. Normocephalic. EYES: Pupils equal round and reactive. Extraocular motions intact. No scleral icterus. No injection or drainage. ENT: Nose without bleeding, purulent drainage. Throat without erythema, tonsillar hypertrophy or exudate. Airway patent. NECK: Trachea midline. Non tender CARDIOVASCULAR: Regular rate and rhythm without murmurs, gallops, or rubs. RESPIRATORY: Clear to auscultation. Breath sounds equal bilaterally. No wheezes, rales, or rhonchi. GASTROINTESTINAL: Abdomen soft, non-tender, nondistended. EXTREMITIES: Well-healed right lateral hip scar, no tenderness trochanteric laterally, nor anterior. No limb length discrepancy, can flex and extend fully with his right lower extremity. Good DP pulse. No skin changes redness warmth, no blistering, no vesicles, no rash. BACK: Nontender without deformity or crepitance. No flank tenderness. NEURO: AOx3. SKIN: No rash or erythema of visible areas Initial Vital Signs Initial Vital Signs: Vital Signs Pulse Rate 78 08/06/23 10:13 Blood Pressure 183/84 H 08/06/23 10:13 Pulse Oximetry 98 08/06/23 10:13 Oxygen Delivery Method Room Air 08/06/23 10:13 Course Orders Ordered: Discontinued Medications Hydromorphone HCl (Hydromorphone 1 Mg Inj) 1 mg IM NOW ONE Stop: 08/06/23 10:34 Last Admin: 08/06/23 10:45 Dose: 1 mg Documented By: SELMA Ondansetron HCl (Ondansetron 4 Mg Odt) 4 mg SL NOW ONE Stop: 08/06/23 10:34 Last Admin: 08/06/23 10:44 Dose: 4 mg Documented By: SELMA Tramadol HCl (Tramadol 50 Mg Prepack) 1 bottle MISC DIRECTED ONE Stop: 08/06/23 10:55 Last Admin: 08/06/23 11:28 Dose: Not Given Documented By: SELMA Vital Signs Vital signs: Vital Signs - 8 hr 08/06/23 10:13 08/06/23 10:13 08/06/23 10:16 Temperature 97.8 F Pulse Rate 78 75 Respiratory Rate 17 Blood Pressure 183/84 H 183/84 H Pulse Oximetry 98 98 Oxygen Delivery Method Room Air Room Air MDM - Extremity Injury (Lower) Imaging Data Extremity x-ray #1: My Impression: Pelvic x-ray with bilateral hip replacements that appear well seated, no obvious dislocation or malposition, on remainder of right hip images the stem appears well seated as well. No fractures or bony lesions obvious. No obvious dislocation/subluxation changes. ED wet read Radiologist's Impression: [address] [address] XRay Report Signed Patient: Solomon Ma MR#: [id number] : 1945 Acct:[id number] Age/Sex: 77 / M Date of Service: 08/06/23 Loc: ED Accession Number: [id number] Procedure: XR hip w pel if done RT 2V Ordering Provider: Kevin Magallanes MD PROCEDURE: XR HIP W PEL IF DONE RT 2V INDICATIONS: right hip pain, fever TECHNIQUE: AP pelvis and lateral view of the hip acquired. COMPARISON: None. FINDINGS: Bones: Patient is status post bilateral hip arthroplasties, with hardware components in expected positions. The hip joint appears congruent. The visualized bony structures appear intact. Soft tissues: Surgical clips in the lower pelvis. No suspicious soft tissue densities. IMPRESSION: No fracture. No acute osseous lesion. If symptoms and/or clinical suspicion for pathology persists, further assessment with repeat radiographs (7-10 days) or advanced imaging (e.g. CT, MRI or bone scan) should be considered. Dictated by: Yani Good MD, PhD on 08/06/2023 at 10:55 Approved by: Yani Good MD, PhD on 08/06/2023 at 10:56 [facility] Narrative Medical decision making narrative: 69-year-old male with history of protein C deficiency on chronic warfarin anticoagulation, remote bilateral hip replacements, increased activity at home yesterday, no blunt trauma, feels increasing right-sided hip pain, INR tested at home 1.6 reported today. No fever on triage, has not felt feverish, had slight chills earlier today that resolved. Unremarkable hip exam, without tenderness lateral or anterior, no limb length discrepancy. We discussed lab testing, hold for now. He would like an x-ray, ordered for the right hip. He would like pain shot. We will avoid Toradol for now given chronic anticoagulation. Has ride home, present. IM Dilaudid with ODT Zofran. X-ray right hip, no dislocation, prosthetic appears well seated, no fractures, no malposition. See radiology report. Symptoms improved after Dilaudid, home pack tramadol. Avoid NSAIDs for now given chronic anticoagulation with warfarin. INR reported 1.6 earlier today, not likely increased risk for hemarthrosis, no further advanced imaging at this time. Consider cane that he has at home to partially offload the right hip for now. Consider soft tissue injury muscle strain or tear. Follow up with his orthopedic surgeon Dr. Freedman advised. Copy of ED visit to go to Dr. Freedman. Discharge Plan Departure Patient Disposition: Home Clinical Impression: Hip pain, right, History of total hip arthroplasty Prescriptions: New tramadol 25 mg tablet 25 mg PO Q6H PRN (Reason: pain) Qty: 20 0RF No Action warfarin 7.5 mg tablet 7.5 mg PO DAILY losartan 25 mg tablet 25 mg PO DAILY metoprolol succinate 25 mg tablet extended release 24 hr 25 mg PO DAILY rosuvastatin 5 mg tablet 5 mg PO DAILY Referrals: Francine Freedman MD [Physician] - Stand Alone Forms: Patient Portal/API
[2023-08-06 10:13] VITALS: BP 183/84; PULSE 78; O2SAT 98
--- NOTE | 2023-08-06 10:13 | DI.RAD.S_ITS ---
PROCEDURE: XR HIP W PEL IF DONE RT 2V INDICATIONS: right hip pain, fever TECHNIQUE: AP pelvis and lateral view of the hip acquired. COMPARISON: None. FINDINGS: Bones: Patient is status post bilateral hip arthroplasties, with hardware components in expected positions. The hip joint appears congruent. The visualized bony structures appear intact. Soft tissues: Surgical clips in the lower pelvis. No suspicious soft tissue densities. IMPRESSION: No fracture. No acute osseous lesion. If symptoms and/or clinical suspicion for pathology persists, further assessment with repeat radiographs (7-10 days) or advanced imaging (e.g. CT, MRI or bone scan) should be considered. Dictated by: Yani Good MD, PhD on 08/06/2023 at 10:55 Approved by: Yani Good MD, PhD on 08/06/2023 at 10:56
[2023-08-06 10:16] VITALS: BP 183/84; PULSE 75; RESP 17; TEMP 36.6; O2SAT 98; BMI 33.0
--- NOTE | 2023-08-06 10:35 | PC.NURSE ---
Pt states history of right hip replacement, has had aching pain the past week. He was working in the garden yesterday and developed intense right hip pain. He denies having a fall, denies nausea, CMS intact distally.
[2023-08-06 10:42] VITALS: BP 124/73; PULSE 71; O2SAT 97
[2023-08-06] MEDS: ONDANSETRON 4 MG ODT SL (10:44)
[2023-08-06] MEDS: HYDROMORPHONE 1 MG INJ IM (10:45)
[2023-08-06 11:00] VITALS: BP 139/78; PULSE 66; O2SAT 95
[2023-08-06 11:48] VITALS: PULSE 66; O2SAT 94
[2023-08-06 11:49] VITALS: BP 124/73; PULSE 65; O2SAT 95
== END 2023-08-06 11:53 | disposition home or self-care (01) ==
LOC: ED 10:11
PROVIDERS: Emergency Provider Emergency Medicine
DX: M25.551 Pain in right hip (principal); Z96.641 Presence of right artificial hip joint
CPT/HCPCS: 73502; 96372; 99283; 99284; J1170

== ENCOUNTER → 2023-08-07 13:33 | Outpatient (CLI) | payer MEDICARE, OTHER, SELFPAY ==
[2023-08-07 15:20] LABS: Add Manual Diff / Slide Review NO; Basophils Absolute Auto 100 /uL (0-100); Basophils Percent Auto 0.9 % (0-2); Eosinophils Absolute Auto 200 /uL (0-450); Eosinophils Percent Auto 2.7 % (2-4); Hematocrit 42.6 % (41-53); Hemoglobin 14.4 g/dL (13.5-17.5); Lymphocytes Absolute Auto 1700 /uL (1100-4500); Lymphocytes Percent Auto 26.9 % (25-40); Mean Corpuscular HGB Conc 33.7 % (30-36); Mean Corpuscular Hemoglobin 30.4 PG (26-34); Mean Corpuscular Volume 90.3 fL (80-100); Monocytes Absolute Auto 400 /uL (0-900); Monocytes Percent Auto 6.4 % (3-14); Neutrophils Absolute Auto 4000 /uL (1500-7000); Neutrophils Percent Auto 63.1 % (50-75); Platelet Count 213 X10^3/uL (150-400); Red Blood Cell Count 4.71 X10^6/uL (4.5-5.9); Red Cell Distribution Width 14.9 % (11.6-14.8); White Blood Cell Count 6.3 X10^3/uL (4.5-11.0)
[2023-08-07 15:40] LABS: Erythrocyte Sedimentation Rate 8 MM/HR (0-15)
[2023-08-07 16:01] LABS: C-Reactive Protein Quant < 0.5 mg/dL (<1.0)
== END ==
PROVIDERS: PCP Internal Medicine; Referring Provider Orthopaedic Surgery; Visit Provider Orthopaedic Surgery
DX: Z96.643 Presence of artificial hip joint, bilateral (principal)
CPT/HCPCS: 36415; 85025; 85651; 86140

== ENCOUNTER → 2023-08-24 11:27 | Outpatient (CLI) | payer MEDICARE, OTHER, SELFPAY ==
--- NOTE | 2023-08-24 11:59 | DI.MRI.S_ITS ---
PROCEDURE: MR LUMBAR SPINE WO CON INDICATIONS: Lumbago with sciatica TECHNIQUE: Noncontrast sagittal T1 spin echo and T2 fast echo, sagittal STIR, and T2 fast spin echo through the lumbar spine. In cases with scoliosis, additional coronal T2 fast spin echo may be performed. COMPARISON: None. FINDINGS: Image quality: Excellent. Alignment and Curvature: Grade 1 anterolisthesis of L5 on S1. Bone Marrow: Modic type 2 degenerative endplate changes at L5-S1. Likely bilateral pars interarticularis defects at L5-S1. Marrow is of normal overall signal. No acute vertebral body compression fractures. Spinal Cord: Conus medullaris terminates at the L1-L2 level. Visualized cord demonstrates normal signal and size. Paraspinous Soft Tissues: No paravertebral masses. T12-L1: Disc desiccation and mild height loss. Mild posterior disc bulge. Facet arthropathy. No central canal or neural foraminal stenosis. L1-L2: Disc desiccation. Mild disc bulge. Facet arthropathy. No central canal or neural foraminal stenosis. L2-L3: Disc desiccation and mild height loss. Mild posterior disc bulge with superimposed right subarticular disc extrusion. Facet arthropathy. Epidural lipomatosis. Severe central canal stenosis. Moderate bilateral neural foraminal stenosis. L3-L4: Disc desiccation and mild disc height loss. Mild posterior disc bulge. Facet arthropathy. No central canal stenosis. Mild bilateral neural foraminal stenosis. L4-L5: Disc desiccation and posterior disc bulge. Facet arthropathy and thickening of ligamentum flavum. Mild central canal stenosis. Moderate bilateral neural foraminal stenosis. L5-S1: Severe disc desiccation height loss. Mild disc bulge. Facet arthropathy and thickening of ligamentum flavum. No central canal stenosis. Severe bilateral neural foraminal stenosis. IMPRESSION: 1. Multilevel degenerative changes of the lumbar spine as described above. 2. There is severe central canal stenosis at L2-L3. 3. Severe bilateral neural foraminal stenosis at L5-S1. Dictated by: Matt Zamarripa M.D. on 08/24/2023 at 13:00 Approved by: Matt Zamarripa M.D. on 08/24/2023 at 13:05
== END ==
PROVIDERS: PCP Internal Medicine; Referring Provider Physician Assistant; Visit Provider Physician Assistant
DX: M47.816 Spondylosis without myelopathy or radiculopathy, lumbar region (principal); M47.817 Spondylosis without myelopathy or radiculopathy, lumbosacral region; M48.061 Spinal stenosis, lumbar region without neurogenic claudication; M48.07 Spinal stenosis, lumbosacral region; M54.40 Lumbago with sciatica, unspecified side
CPT/HCPCS: 72148

== ENCOUNTER → 2024-01-01 13:24 | Outpatient (CLI) | payer MEDICARE, OTHER, SELFPAY ==
--- NOTE | 2024-01-01 13:43 | EKG_ITS ---
[address] [address] Test Date: 2024-01-01 Pat Name: Solomon Ma Department: [facility] Room: Gender: Male Judicial Clerk: CHAR : 1945 Requested By: Order Number: [id number] Reading MD: Gume Ledbetter Measurements Intervals [place] Rate: 70 P: 34 HI: 206 QRS: -44 QRSD: 156 T: 28 QT: 454 QTc: 490 Interpretive Statements Normal sinus rhythm Left axis deviation Right bundle branch block Electronically Signed On 01-05-2024 18:48:57 PST by Gume Ledbetter
[2024-01-01 14:46] LABS: Add Manual Diff / Slide Review NO; Basophils Absolute Auto 100 /uL (0-100); Basophils Percent Auto 0.9 % (0-2); Eosinophils Absolute Auto 200 /uL (0-450); Eosinophils Percent Auto 2.9 % (2-4); Hematocrit 41.7 % (41-53); Hemoglobin 13.9 g/dL (13.5-17.5); Lymphocytes Absolute Auto 1600 /uL (1100-4500); Lymphocytes Percent Auto 27.6 % (25-40); Mean Corpuscular HGB Conc 33.4 % (30-36); Mean Corpuscular Hemoglobin 30.5 PG (26-34); Mean Corpuscular Volume 91.5 fL (80-100); Monocytes Absolute Auto 500 /uL (0-900); Monocytes Percent Auto 8.8 % (3-14); Neutrophils Absolute Auto 3500 /uL (1500-7000); Neutrophils Percent Auto 59.8 % (50-75); Platelet Count 222 X10^3/uL (150-400); Red Blood Cell Count 4.56 X10^6/uL (4.5-5.9); Red Cell Distribution Width 15.1 % (11.6-14.8); White Blood Cell Count 5.8 X10^3/uL (4.5-11.0)
[2024-01-01 15:08] LABS: BUN Creatinine Ratio 24.6 (6-22); Blood Urea Nitrogen 28 mg/dL (9-20); Calcium 9.6 mg/dL (8.4-10.2); Carbon Dioxide 28 mmol/L (22-32); Chloride 102 mmol/L (98-107); Estimated Glomerular Filt Rate > 60 mL/min (>60); Glucose 100 mg/dL (80-110); HEMOLYSIS < 15 (0-50); Potassium 4.4 mmol/L (3.4-5.1); Sodium 136 mmol/L (137-145)
== END ==
PROVIDERS: PCP Internal Medicine; Referring Provider Orthopaedic Surgery Orthopaedic Surgery of the Spine; Visit Provider Orthopaedic Surgery Orthopaedic Surgery of the Spine
DX: Z01.818 Encounter for other preprocedural examination (principal); Z01.812 Encounter for preprocedural laboratory examination
CPT/HCPCS: 36415; 80048; 85025; 93005

== ENCOUNTER → 2024-01-20 14:57 | Outpatient (CLI) | payer MEDICARE, OTHER, SELFPAY ==
--- NOTE | 2024-01-20 | DI.CT.S_ITS ---
PROCEDURE: CT LUMBAR SPINE WO CON INDICATIONS: globus robotic protocol TECHNIQUE: Noncontrast 3 mm thick sections acquired from the T12 level to the sacrum. Sagittal and coronal reformats were constructed. For radiation dose reduction, the following was used: automated exposure control. COMPARISON: [facility], MR, MR LUMBAR SPINE WO CON, 08/24/2023, 12:00. FINDINGS: Image quality: Excellent. Bones: 5 non rib-bearing lumbar vertebrae are present. Diffuse osseous demineralization. The vertebral body heights are preserved. Multilevel hypertrophy of the posterior spinous processes from the L2-S1 levels. Multilevel facet arthropathy, severe at the L4-L5 and L5-S1 levels. Bilateral L5-S1 pars interarticularis defects. Mild bilateral sacroiliac joint osteoarthritis. Small bone island at the right inferior sacral ala (5/44). Alignment: Grade 1 anterolisthesis of L5 on S1. Otherwise, the lumbar lordosis is preserved. Discs: Multilevel intervertebral disc height loss, severe at the T11-T12 and L5-S1 level. Vacuum disc phenomenon at multiple levels, most conspicuous at L2-L3. Mild multilevel disc bulging. Central canal: Although the epidural space is not well assessed on CT, there is severe central canal stenosis at L2-L3 Neural foramina: Severe bilateral L5-S1 neural foraminal stenosis. Moderate left foraminal stenosis at the L4-L5 level. Prevertebral soft tissues: No abdominal aortic aneurysm. No contour deformity of the psoas major muscles. No prevertebral soft tissue edema. Mild lower paraspinal muscle atrophy (4/68). Partially identified total hip arthroplasties. IMPRESSION: 1. Severe L2-L3 central canal stenosis. 2. Severe bilateral L5-S1 neural foraminal stenosis. 3. Multilevel lumbar osteoarthrosis with severe L4-L5 and L5-S1 facet arthropathy, bilateral L5-S1 pars interarticularis defects, and hypertrophy of the spinous processes. Dictated by: Howard Castelan M.D. on 01/21/2024 at 11:47 Approved by: Howard Castelan M.D. on 01/21/2024 at 11:57
== END ==
PROVIDERS: PCP Internal Medicine; Referring Provider Orthopaedic Surgery Orthopaedic Surgery of the Spine; Visit Provider Orthopaedic Surgery Orthopaedic Surgery of the Spine
DX: M48.061 Spinal stenosis, lumbar region without neurogenic claudication (principal); M48.07 Spinal stenosis, lumbosacral region; M47.816 Spondylosis without myelopathy or radiculopathy, lumbar region; M47.817 Spondylosis without myelopathy or radiculopathy, lumbosacral region
CPT/HCPCS: 72131

== ENCOUNTER 2024-01-27 06:09 | Inpatient (IN) | payer MEDICARE, OTHER, SELFPAY ==
[2024-01-21 08:30] VITALS: BMI 30.8
[2024-01-27] VITALS (12 sets, daily range): BP systolic 106–166; BP diastolic 57–87; PULSE 56–83; RESP 12–20; TEMP 36.1–36.6; O2SAT 90–98; BMI 30.8
--- NOTE | 2024-01-27 | DI.RAD.S_ITS ---
PROCEDURE: XR LUMBAR SPINE 2-3V INDICATIONS: L5-S1 TLIF TECHNIQUE: 2 intraoperative fluoroscopic views of the lumbar spine were acquired. COMPARISON: None. FINDINGS: Intraoperative fluoroscopic images shows posterior fusion at L5-S1 level with surgical hardware and intervertebral spacer in place. IMPRESSION: Fluoro guidance was provided intraoperatively for L5-S1 TLIF performed by ordering physician. Dictated by: Narinder Martin M.D. on 01/27/2024 at 13:25 Approved by: Narinder Martin M.D. on 01/27/2024 at 13:26
[2024-01-27] MEDS: LACTATED RINGERS 1,000 ML 42 ML IV (07:09)
[2024-01-27] MEDS: ACETAMINOPHEN 325 MG TABLET 975 MG PO (07:10)
--- NOTE | 2024-01-27 07:39 | PM.PREOP ---
Pre-operative Note Interval Note History & Physical reviewed/Exam performed by Physician: Yes Changes to H&P: No
[2024-01-27] MEDS: CEFAZOLIN 2 GM/100 ML PREMIX 100 ML IV ×2 (07:53→16:09)
--- NOTE | 2024-01-27 08:19 | SUR.OPER ---
Prone on spine table, head in foam head support, padded chest and pelvic supports, gel pad at knees, lower legs supported by pillows; nipples, genitalia and toes free of pressure, arms secured on foam padded arm boards at <90 degrees abduction. Tape over blanket at thigh secured to table.
[2024-01-27] MEDS: BUPIVACAINE 0.25% (PF) 60 ML, EPINEPHrine 0.15 MG INJ (08:35)
[2024-01-27] MEDS: BUPIVACAINE LIPOSOME 266 MG/20 ML VIAL INJ (08:35)
--- NOTE | 2024-01-27 10:39 | P.OP_ITS ---
Operative Date/Time/Diagnoses Date of procedure: 01/27/24 Time of procedure: 07:40 Pre-op diagnosis: 1. L5-S1 anterolisthesis 2. Lumbar foraminal stenosis Post-op diagnosis: same Procedure & Clinicians Procedure: 1. L5-S1 Postero-lateral and posterior interbody fusion 2. L5-S1 interbody cage placement. 3. L5-S1 decompressive laminectomy with bilateral facetecomies 4. L5-S1 Posterior non-segmental instrumentation 5. [place] of bone marrow from iliac crest 6. Utilization of microsurgical technique and operating microscope 7. Utilization of robotic assisted navigation Same procedure as scheduled: Yes Indications: Patient has been having chronic back pain and worsening lumbar radiculopathy. Patient was found have severe bilateral foraminal stenosis at L5-S1 and anterolisthesis correlating with his symptoms. Patient failed multiple conservative management with worsening pain weakness and numbness in his lower extremity. Patient has been having difficulty performing activity of daily living. After discussing risks benefits of treatment options, patient elected proceed with surgery. Surgeon: Shaji Wick Cafe Lead: Gregoria Breaux Click Yes if Unassisted: No Anesthesia Type: General Operative Notes Closure Type: primary Prosthetic devices, grafts, tissues, transplants, or devices: Globus CREO MIS Screws, Rise cage Estimated Blood Loss (mL): 30 Blood products transfused: none Procedure in detail: Patient was seen in the preoperative area. Risks and benefits of the surgery was discussed with the patient. Informed consent was obtained from the patient and placed in the chart. Surgical site was marked. Patient was taken to the operative room. General anesthesia was administered. Prophylactic antibiotic was given to the patient less than 30 min before the incision was made. Patient was placed into a prone position on the Dejuan table. Patient's back was then prepped and draped in the sterile fashion. Time-out was performed at this time. After patient was prepped and draped, patient's PSIS was palpated and marked bilaterally. Small 1 cm incision was made over the PSIS for placement of the reference probes. Two trocar was placed into the PSIS 1 on each side. The reference probe was attached to the trocar of the reference apparatus. At this time the C-arm imaging was used to confirm AP and lateral of L5-S1 vertebrae and merged the C-arm imaging using the [employer] robotic navigation system with the CT of the lumbar spine. After successful merging was completed and confirmed, skin marker was used to bienvenido out the skin incision using the [employer] robotic arm. Bilateral incision was made at this time. Pre templated trajectory was used and guided using the [employer] robotic navigation system for bilateral L5-S1 pedicle screw placement. This was done by using the robotic arm to guide the high-speed bur to make a cortical entry point. Next a drill was placed also using the robotic arm and guided using the navigation system drilling partially through bilateral L5, S1 pedicles. Next L5-S1 pedicle screws it was pre templated and measured was placed onto the power logging truck driver and inserted into the pedicles bilaterally. After all 4 screws were placed C-arm imaging was taken of both AP and lateral to confirm the placement. Excellent placement of the screws were confirmed and a matched precisely with the pre planned screw placement using the navigation system. MARs retractor was inserted using [employer] guidence. Globus MARS retractors was placed inside the incision and docked onto the L5 lamina. Using microsurgical technique and operating microscope, a L5 laminectomy and L5-S1 facetectomy was performed using a Kerrison rongeur. Patient was found have severe lateral recess and neural foramen stenosis which was fully decompressed after the laminectomy facetectomy. The laminectomy and facetectomy was performed in order to decompress patient's cauda equina as well as the nerve roots exiting at the L5-S1 level. More than 75% of the facets were removed during the process of decompression rendering L5-S1 level grossly unstable and required a fusion procedure at the same time. The disc space at L5-S1 was identified, and a total diskectomy was performed at L5-S1 level. The endplates were decorticated using a rasp and shaver. The total diskectomy and decortication was performed at L5-S1 level in order to to accomplish a L5-S1 fusion. The local bone from the laminectomy and facetectomy was saved for local bone grafting. After the total diskectomy and decortication was completed, Viacel bone graft material was combined with local bone that was harvested earlier. access to the disc space was quite difficult due to the significant angle and collapsed disc space. Extensive decompression was required in order to access the disc space. At this time, a separate skin is incision was made over the iliac crest. A Jamshidi needle was inserted into the iliac crest through a separate skin incision. 5 cc of bone marrow aspiration was obtained through the separate skin incision using a Jamshidi needle from the iliac crest. The bone marrow aspiration was combined with local bone and the Viacel bone grafting material. The bone grafting material was placed into the L5-S1 interbody space along with a expandable cage. The cage was expanded to its maximum height using the torque limiting screwdriver. The disc preparation as well as the cage insertion were also performed under navigation guidance. After the cage was placed, AP and lateral C-arm imaging was taken to confirm placement of the cage and excellent position was confirmed. Globus MARS retractor was inserted and docked onto the L5-S1 posterolateral gutter on the right side. Using the power drill, posterior-lateral decortication was performed at L5-S1 level until bleeding cortical bone was identified. The remaining bone grafting material was placed into the L5-S1 posterior lateral gutter he order to accomplish posterolateral fusion at the L5- S1 level. At this time the tulips were attached to the L5-S1 pedicle screw shanks. After measuring the length of the rods, they were inserted into the tulips of the pedicle screws and locked in place using locking caps and torque limiting screwdriver bilaterally. Total 4 caps and 2 titanium rods was used in order to complete the posterior instrumentation construct. After all the hardware was placed, and confirmed with AP and lateral C-arm imaging, the wound was then irrigated with sterile normal saline and packed with Ray-Judi gauze for 3 min to accomplish hemostasis. After the gauze was removed the deep fascia was closed with #1 Vicryl suture. The subcutaneous layer was closed with 2-0 Vicryl. The skin was closed with skin nilda. Patient tolerated the procedure well. There were no complications. Neuro monitoring system was used to monitor patient's neurologic status throughout entire procedure. There was no disturbance of the neural monitoring signals throughout the case. The Operation could not have been safely performed without compromising the technical result or length of the procedure, without the assistance of a skilled surgical supplies sterilizer. The surgical supplies sterilizer was medically necessary for proper positioning, retraction and manipulation of instruments, proper exposure, surgical preparation, and manipulation of tissue. Complications: none Post-operative Condition: stable Disposition: PACU Plan for aftercare: Admit to inpatient hospital
[2024-01-27] MEDS: OXYCODONE IR 10 MG TABLET PO ×3 (11:38→21:55)
[2024-01-27] MEDS: LACTATED RINGERS 1,000 ML 125 ML IV (11:39)
[2024-01-27] MEDS: HYDROMORPHONE 0.5 MG INJ IV (12:03)
--- NOTE | 2024-01-27 13:07 | PT.IIE ---
Current Diagnoses Spondylolisthesis, lumbar region (01/27/24) Spinal stenosis, lumbar region without neurogenic claudication (01/27/24) Surgery Performed Operation Date: 01/27/24 07:45 Actual Procedures p L5-S1 TLIF-Robot - Shaji Wick MD Surgical History (Last Updated 01/21/24 @ 09:18 by Clementine Mcguire, RN) H/O right mastectomy (2000) History of skin graft History of total left hip replacement (2016) History of total left knee replacement (2014) History of total right hip replacement (2016) Hx of lymph node excision Hx of transurethral resection of prostate Medical History (Last Updated 01/21/24 @ 09:22 by Clementine Mcguire, RN) DVT, lower extremity (~2016) Enlarged prostate History of COVID-19 (04/2022) HTN (hypertension) Hyperlipidemia Hypothyroidism Melanoma Mitral regurgitation Non-rheumatic mitral regurgitation 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 RBBB (right bundle branch block) Thoracic aortic aneurysm without rupture Physical Therapy Inpatient Evaluation/Re-Eval M1 PT/OT-IP Prior Functional Status Start: 01/27/24 15:12 Freq: NEEDED Status: Active Protocol: Document 01/27/24 13:07 AB (Rec: 01/27/24 15:23 AB [id number]) Medical Review Prior Functional Status Medical History Reviewed Yes Communication able to make needs known Mobility and Gait pt stated that he was independent witha ll mobilities and ambulation without AD Social History Household Members spouse Living Arrangements House Number of Floors (Floors) One Floor Number of Stairs To Enter/Railing? no steps to enter Home Environment High Toilet,Walk in Shower, Built-In Shower Seat Home Equipment Front Wheel Walker,Hand Held Shower,Grab Bars In Shower M2 PT-IP Current Condition Start: 01/27/24 15:12 Freq: NEEDED Status: Active Protocol: Document 01/27/24 13:07 AB (Rec: 01/27/24 15:23 AB [id number]) Physical Therapy Current Condition Current Condition Evaluation Date 01/27/24 Treatment Diagnosis s/p L5S1 TLIF; difficulty in walking Onset Date 01/27/24 M3 PT-IP Subjective Start: 01/27/24 15:12 Freq: NEEDED Status: Active Protocol: Document 01/27/24 13:07 AB (Rec: 01/27/24 15:23 AB [id number]) Subjective Physical Therapy Visit Type Type Initial Evaluation Visit Start Time 13:07 Visit Stop Time 14:05 Number of CONTROL ROOM TECHNICIAN Visits 58 Physical Therapy Visit Comments Patient Comments agreeable to do PT Therapy Pain Assessment Pain When Pain Assessed At Rest Pain Present Pain Present Pain Reported Location Lower Back Intensity 5 Scale Used Numeric (0 - 10) Pain Behaviors Guarding Pain Management Techniques Apply Cold,Distraction, Modification of Treatment,Re- positioning,Timing of Activity with Medications M4 PT-IP Mobility and Gait Start: 01/27/24 15:12 Freq: NEEDED Status: Active Protocol: Document 01/27/24 13:07 AB (Rec: 01/27/24 15:23 [id number]) PT-Bed Mobility Assessment Rolling Type of Rolling Log Rolling Level of Assist Minimal Assistance Supine to Sit Supine to Sit Minimal Assistance PT-Transfer Assessment Sit to and From Stand Sit to and from Stand Contact Guard Assistance, Minimal Assistance,1 Person Assistance,Use of Upper Extremities Equipment Transfer Assistive Device Gait Belt,Front Wheeled Walker Orthotic/Prosthetic Devices or Brace: No Transfers Transfer Destination Chair Transfer Technique ambulated Transfer Ability Level of Assist Contact Guard Assistance,1 Person Assistance,Use of Upper Extremities Comments Mobility Comments pt supine in bed. spouse in room. obtained PLOF and home set up. post-op folder provided and reviewed contents . BP supine: 121/ 73. educated pt regarding log roll bed mobility. pt completed log roll bed mobility min A and max cues. pt able to sit on EOB SBA. c/o slight lightheadedness. BP checked: 118/75. pt sat on EOb for ~ 2 more minutes. BP rechecked: 118/73. pt completed sit to stand CGA to min A and max cues. pt needed assist to stabilize during UE transition to walker. pt ambulated ~ 15 ft to the chair using FWW CGA and cues. BP checked: 125/75 . pt refused further ambulation. pt wants to stay up on the chair. positioned pt on the chair. call light and table placed within reach. left pt with spouse in room. Gait Assessment Gait Gait Assistance Required: Contact Guard Assist Distance (Feet) 15 Able to Maintain Weight Bearing Status Yes During Gait Assistive Devices Assistive Device Gait Belt,Front Wheeled Walker Orthotic/Prosthetic Devices or Brace: No Gait Deviations General Gait Pattern Ataxic,Decreased Stride Length ,Decreased Feet Clearance Factors Limiting Gait Function Factors Limiting Gait Function Decreased Activity Tolerance, Decreased Strength,Limited Range of Motion,Pain,Poor Balance PT-Balance Assessment Sitting Balance and Reactions Static Sitting Balance Ability Good Dynamic Sitting Balance Ability Good Standing Balance and Reactions Static Standing Balance Ability Fair Dynamic Standing Balance Ability Fair Device Used FWW M5 PT-IP Objective Assessments Start: 01/27/24 15:12 Freq: NEEDED Status: Active Protocol: Document 01/27/24 13:07 AB (Rec: 01/27/24 15:23 AB [id number]) Orientation Orientation/Cognition Level of Alertness Alert Orientation Name,Age,Birthday,Month,Date, Year,Day of Week,Place, Situation Language Function Ability No Deficits Noted Safety Awareness Understands Safety Issues Memory Description No Deficits Noted Gross Range of Motion Lower Extremity ROM Assessment Within Functional Limits Strength Lower Extremity Strength Assessment Within Functional Limits Coordination Assessment Gross Coordination Gross Coordination WNL Muscle Tone Muscle Tone WNL Yes M6 PT-IP Treatment Start: 01/27/24 15:12 Freq: NEEDED Status: Active Protocol: Document 01/27/24 13:07 AB (Rec: 01/27/24 15:23 AB [id number]) Physical Therapy Treatment Education Education Provided Precautions,Weight Bearing Status,Post-Op Packet,Safety M7 PT-IP Assessment and Plan Start: 01/27/24 15:12 Freq: NEEDED Status: Active Protocol: Document 01/27/24 13:07 AB (Rec: 01/27/24 15:23 [id number]) PT Summary Assessment and Plan Potential Rehabilitation Potential Good Status of Condition at Evaluation Evolving Summary Impairments Pain,ROM,Strength,Balance, Coordination,Sensation,Tone, Cognition,Bed Mobility, Transfers,Gait,Activity Tolerance Assessment Summary pt is a 78 y/o M s/p L5S1 TLIF POD 0. pt with back precautions. pt requiring min A for bed mobility, CGA to min A for sit to stand and CGA for ambulation using FWW. pt lives with spouse and plans to go home with spouse to assist him. will continue to assess progress. Goals Bed Mobility Goal Independent Transfer Goal Independent,Front Wheeled Walker Gait Goal Independent,Front Wheel Walker Frequency of Treatment Frequency Of Treatment Twice a Day Treatment Plan Physical Therapy Treatment Plan Bed Mobility Training,Transfer Training,Gait Training, Therapeutic Exercise,Balance Retraining,Post Op Education, Discharge Planning,Hot or Cold Pack,Neuromuscular Re-ed, Coordination Retraining,Manual Therapy Precautions Lumbar Precautions Log Roll,No Twisting,Limit Bending,Lifting Restriction of 10 lbs,Gait Belt above Incisional Area Recommendations To Nursing Amount of Assist Needed 1 Person Assist Discharge Recommendations PT Discharge Recommendations Home with Assistance Transportation Needs at Discharge Private Vehicle
--- NOTE | 2024-01-27 15:36 | OT.IP.EVAL ---
Current Diagnoses Spondylolisthesis, lumbar region (01/27/24) Spinal stenosis, lumbar region without neurogenic claudication (01/27/24) Surgery Performed Operation Date: 01/27/24 07:45 Actual Procedures p L5-S1 TLIF-Robot - Shaji Wick MD Past Medical History (Last Updated 01/21/24 @ 09:22 by Clementine Mcguire, RN) DVT, lower extremity (~2017) Enlarged prostate History of COVID-19 (04/2022) HTN (hypertension) Hyperlipidemia Hypothyroidism Melanoma Mitral regurgitation Non-rheumatic mitral regurgitation Prothrombin [id number] mutation RBBB (right bundle branch block) Thoracic aortic aneurysm without rupture Surgical History (Last Updated 01/21/24 @ 09:18 by Clementine Mcguire, RN) H/O right mastectomy (2000) History of skin graft History of total left hip replacement (2016) History of total left knee replacement (2014) History of total right hip replacement (2016) Hx of lymph node excision Hx of transurethral resection of prostate Occupational Therapy Inpatient Evaluation/Re-Eval M1 PT/OT-IP Prior Functional Status Start: 01/27/24 15:12 Freq: NEEDED Status: Active Protocol: Document 01/27/24 16:38 CGR (Rec: 01/27/24 16:48 CGR [id number]) Medical Review Prior Functional Status Medical History Reviewed Yes Communication able to make needs known Mobility and Gait pt stated that he was independent with all mobilities and ambulation without AD Activities of Daily Living and IADL's pt was IND in all ADLS and IADLs at baseline. Pt is an active national dedicated truck driver. Social History Household Members spouse Living Arrangements House Number of Floors (Floors) One Floor Number of Stairs To Enter/Railing? no steps to enter Home Environment High Toilet,Walk in Shower, Built-In Shower Seat Home Equipment Front Wheel Walker,Hand Held Shower,Grab Bars In Shower Employment Status Retired Additional Social History Comment Pt lives with his Laila in [place] and has a flat bed. M2 OT-IP Current Condition Start: 01/27/24 16:38 Freq: Status: Active Protocol: Document 01/27/24 16:38 CGR (Rec: 01/27/24 16:48 CGR [id number]) Occupational Therapy Current Condition Current Condition Evaluation Date 01/27/24 Treatment Diagnosis L5-S1 TLIF Diagnosis Onset Date 01/27/24 Post Operative Precautions Lumbar Precautions Log Roll,No Twisting,Limit Bending,Lifting Restriction of 10 lbs,Gait Belt above Incisional Area M3 OT- IP Subjective and Pain Start: 01/27/24 16:38 Freq: Status: Active Protocol: Document 01/27/24 16:38 CGR (Rec: 01/27/24 16:48 CGR [id number]) OT- Subjective Occupational Therapy Visit Type Type Initial Evaluation Visit Start Time 14:55 Visit Stop Time 15:36 Notes Pt up in chair when OT entered . OT Pain Assessment Pain When Pain Assessed At Rest Pain Present Pain Present Pain Reported Location Lower Back Intensity 5 Scale Used Numeric (0 - 10) Management Techniques Modification of Treatment,Re- positioning,Timing of Activity with Medications M4 OT- IP ADL's Start: 01/27/24 16:38 Freq: Status: Active Protocol: Document 01/27/24 16:38 CGR (Rec: 01/27/24 16:48 CGR [id number]) OT [id number] Comments OT Self-Feeding Comments not meal time OT ADL-Grooming General Evaluation Grooming Ability Independent Areas Needing Assistance Retrieving/Set-up of Grooming Items,Face Washing Comments OT Grooming Comments standing at sink OT ADL-Oral Care General Eval Oral Care Ability Independent Areas of Assistance Brushing Teeth,Retrieving/Set- Up of Items Comments Oral Care Comments standing at sink OT ADL-Dressing General Eval Lower Body Dressing Ability Standby Assistance Areas Needing Assistance Socks Assistive Devices Dressing Assistive Devices Admissions Advisor,Sock Aid Comments OT Dressing Comments Pt educated on use of metal furrer and sock aid. OT ADL-Toileting General Evaluation Toileting Ability Independent Comments OT Toileting Comments standing for urination. Turned water on and provided pt with wet warm cloth to help with initiating the flow of urine. OT ADL-Bathing Comments OT Bathing Comments not performed M5 OT- IP IADL's Start: 01/27/24 16:38 Freq: Status: Active Protocol: Document 01/27/24 16:38 CGR (Rec: 01/27/24 16:48 CGR [id number]) OT-Instrumental Activities of Daily Living Deficits IADL Deficits Identified No Deficits Home Safety Awareness Awareness of Need for Assistance at Home Good Awareness Ability to Problem Solve Emergency Able to Problem Solve Situations Medication Management Medication Management No Deficits Identified Money Management Money Management No Deficits Identified Meal Preparation Meal Preparation No Deficits Identified Trumpet Teacher Trumpet Teacher No Deficits Identified Driving Driving Comments Pt is an active national dedicated truck driver. M6 OT- IP Functional Cognition Start: 01/27/24 16:38 Freq: Status: Active Protocol: Document 01/27/24 16:38 CGR (Rec: 01/27/24 16:48 CGR [id number]) Cognitive Factors Limiting Selfcare Function Cognitive Ability Level of Alertness Alert Patient Orientation Name,Age,Birthday,Month,Date, Year,Day of Week,Place, Situation Attention Span Ability Capable of Focused Attention, Capable of Sustained Attention Ability to Follow Commands Able to Follow Multi-Step Commands OT- Vision and Hearing OT- Hearing Assessment OT- Hearing Assessment WFL OT- Vision Assessment Vision History Cataracts Visual Acuity Glasses For Reading Visual Attentiveness WFL Occular Pursuits WFL Visual Convergence WFL M7 OT- IP Mobility and Balance Start: 01/27/24 16:38 Freq: Status: Active Protocol: Document 01/27/24 16:38 CGR (Rec: 01/27/24 16:48 CGR [id number]) OT-Transfer Assessment Sit to and From Stand Sit to and from Stand Standby Assistance Transfers Transfer Ability Standby Assistance Technique Transfer Destination Chair Transfer Technique Stand Step Pivot Devices Transfer Assistive Devices Gait Belt,Front Wheeled Walker Comments Mobility Comments Mobility around the room and bathroom OT- Gait Assessment Gait Gait Assistance Required: Standby Assistance Assistive Devices Assistive Device Gait Belt,Front Wheeled Walker Comments Gait Ability Comments Mobility around the room and bathroom OT- Balance Assessment Sitting Balance and Reactions Static Sitting Balance Ability Normal Dynamic Sitting Balance Ability Normal M8 OT- IP Objective Assessments Start: 01/27/24 16:38 Freq: Status: Active Protocol: Document 01/27/24 16:38 CGR (Rec: 01/27/24 16:48 CGR [id number]) OT Gross Range of Motion Upper Extremity Range of Motion Assessment Within Functional Limits OT Strength Upper Extremity Strength Assessment Within Functional Limits Comments Strength Comments 4+/5 OT- Coordination Assessment Upper Extremity Finger to Nose Test Within Functional Limits Finger Tapping Test Within Functional Limits OT-Muscle Tone Assessment Muscle Tone WNL Yes OT Sensation Assessment Edema Edema Absent M9 OT- IP Assessment and Plan Start: 01/27/24 16:38 Freq: Status: Active Protocol: Document 11/27/24 16:38 CGR (Rec: 01/27/24 16:48 CGR [id number]) OT Summary Assessment and Plan Potential Rehabilitation Potential Excellent Analytic Complexity at Evaluation Low Summary OT Impairments Pain,Functional Mobility, Dressing,Toileting,Bathing, Toilet Transfers,Shower Transfers,Activity Tolerance Progress Towards Goals Slow Progress due to Pain Assessment Summary Pt presents as a low complexity evaluation s/p admit for L5-S1 TLIF. Pt is progressing well and is likely safe for discharge home tomorrow. Pt has necessary home equipment and for support. Will benefit from 1-2 more OT sessions. Goals Dressing Goal Independent,Admissions Advisor,Sock Aid Toileting Goal Independent Bathing Goal Independent Toilet Transfer Goal Independent Shower Transfer Goal Independent Days to Meet Goals 2 Frequency of Treatment Other frequency 5x a week Treatment Plan OT Treatment Plan ADL Training,Functional Mobility,Patient/Family Education,Discharge Planning Other Treatment Recommendations and Next LB dressing, shower Treatment Focus Discharge Recommendations OT Discharge Recommendations Home with Assistance Transportation Needs at Discharge Private Vehicle
[2024-01-27] MEDS: ACETAMINOPHEN 325 MG TABLET 650 MG PO ×2 (16:08→21:57)
--- NOTE | 2024-01-27 16:31 | PC.NURSE ---
Day shift: Pt OOB with SBA + FWW to BR. Ambulated x 2 this shift - with PT/ot and in the halls with this RN. Pain adequately controlled with PO pain medications. Dressing on back CDI. Will continue to monitor.
[2024-01-27] MEDS: ATORVASTATIN 20 MG TABLET 10 MG PO (21:52)
[2024-01-27] MEDS: METOPROLOL ER 25 MG TABLET PO (21:53)
[2024-01-27] MEDS: LOSARTAN 25 MG TABLET PO (21:53)
[2024-01-27] MEDS: SENNOSIDES 8.6 MG TABLET 17.2 MG PO (21:55)
[2024-01-27] MEDS: DOCUSATE 100 MG CAPSULE PO (22:01)
[2024-01-28] MEDS: CEFAZOLIN 2 GM/100 ML PREMIX 100 ML IV
[2024-01-28] MEDS: OXYCODONE IR 5 MG TABLET PO ×2 (01:04→10:37)
[2024-01-28 01:09] VITALS: BP 134/79; PULSE 61; RESP 18; TEMP 36.5; O2SAT 97
[2024-01-28 07:26] LABS: INR 1.1 (0.9-1.3)
[2024-01-28 08:00] VITALS: BP 127/81; PULSE 67; RESP 14; TEMP 37.1; O2SAT 97
[2024-01-28] MEDS: VIT C/E/ZN/COPPR/LUTEIN/ZEAXAN CAPSULE 1 CAP PO (08:15)
[2024-01-28] MEDS: ACETAMINOPHEN 325 MG TABLET 650 MG PO (08:15)
[2024-01-28] MEDS: DOCUSATE 100 MG CAPSULE PO (08:15)
--- NOTE | 2024-01-28 09:05 | PT.IPTN ---
Current Diagnoses Spondylolisthesis, lumbar region (01/27/24) Spinal stenosis, lumbar region without neurogenic claudication (01/27/24) Surgery Performed Operation Date: 01/27/24 07:45 Actual Procedures p L5-S1 TLIF-Daniel - Shaji Wick MD Physical Therapy Treatment Note M2 PT-IP Current Condition Start: 01/27/24 15:12 Freq: NEEDED Status: Active Protocol: Document 01/27/24 13:07 AB (Rec: 01/27/24 15:23 AB [id number]) Physical Therapy Current Condition Current Condition Evaluation Date 01/27/24 Treatment Diagnosis s/p L5S1 TLIF; difficulty in walking Onset Date 01/27/24 M3 PT-IP Subjective Start: 01/27/24 15:12 Freq: NEEDED Status: Active Protocol: Document 01/28/24 09:22 TS (Rec: 01/28/24 09:30 TS [id number]) Subjective Physical Therapy Visit Type Type Treatment Note Visit Start Time 09:05 Visit Stop Time 09:22 Number of ART CONSULTANT Visits 1 Physical Therapy Visit Comments Patient Comments Pt found resting in bed, he is agreeable to PT. Therapy Pain Assessment Pain When Pain Assessed At Rest Pain Present Pain Present Pain Reported M4 PT-IP Mobility and Gait Start: 01/27/24 15:12 Freq: NEEDED Status: Active Protocol: Document 01/28/24 09:22 TS (Rec: 01/28/24 09:30 TS [id number]) PT-Bed Mobility Assessment Rolling Type of Rolling Log Rolling Level of Assist Standby Assistance Supine to Sit Supine to Sit Standby Assistance Sit to Supine Sit to Supine Standby Assistance Scooting Scooting to Edge of Bed Standby Assistance PT-Transfer Assessment Sit to and From Stand Sit to and from Stand Standby Assistance Equipment Transfer Assistive Device Gait Belt,Front Wheeled Walker Orthotic/Prosthetic Devices or Brace: No Comments Mobility Comments Pt recalls 2/3 spinal precautions, did not recall no lifting. Pt performs logroll to L side SBA. Supine to sit SBA with BUE support. STS with FWW SBA. He ambulates ~150' SBA with step thru gait and use of FWW. Pt ambulates back to the room, sit supine SBA. Pt was left in bed, all needs met. Gait Assessment Gait Gait Assistance Required: Standby Assistance Distance (Feet) 150 Able to Maintain Weight Bearing Status Yes During Gait Assistive Devices Assistive Device Gait Belt,Front Wheeled Walker Orthotic/Prosthetic Devices or Brace: No Gait Deviations General Gait Pattern Ataxic,Decreased Stride Length ,Decreased Feet Clearance Factors Limiting Gait Function Factors Limiting Gait Function Decreased Activity Tolerance, Decreased Strength,Limited Range of Motion,Pain,Poor Balance PT-Balance Assessment Sitting Balance and Reactions Static Sitting Balance Ability Good Dynamic Sitting Balance Ability Good Standing Balance and Reactions Static Standing Balance Ability Good Dynamic Standing Balance Ability Good Device Used FWW M5 PT-IP Objective Assessments Start: 01/27/24 15:12 Freq: NEEDED Status: Active Protocol: Document 01/27/24 13:07 AB (Rec: 01/27/24 15:23 AB [id number]) Orientation Orientation/Cognition Level of Alertness Alert Orientation Name,Age,Birthday,Month,Date, Year,Day of Week,Place, Situation Language Function Ability No Deficits Noted Safety Awareness Understands Safety Issues Memory Description No Deficits Noted Gross Range of Motion Lower Extremity ROM Assessment Within Functional Limits Strength Lower Extremity Strength Assessment Within Functional Limits Coordination Assessment Gross Coordination Gross Coordination WNL Muscle Tone Muscle Tone WNL Yes M6 PT-IP Treatment Start: 01/27/24 15:12 Freq: NEEDED Status: Active Protocol: Document 01/28/24 09:22 TS (Rec: 01/28/24 09:30 TS [id number]) Physical Therapy Treatment Education Education Provided Precautions,Weight Bearing Status,Post-Op Packet,Safety M7 PT-IP Assessment and Plan Start: 01/27/24 15:12 Freq: NEEDED Status: Active Protocol: Document 01/28/24 09:22 TS (Rec: 01/28/24 09:30 TS [id number]) PT Summary Assessment and Plan Potential Rehabilitation Potential Good Summary Impairments Pain,ROM,Strength,Balance, Coordination,Sensation,Tone, Cognition,Bed Mobility, Transfers,Gait,Activity Tolerance Progress Towards Goals Progressing Toward Goals Assessment Summary Pt is progressing well with his mobility. He is SBA for all bed mobility and ambulation. He has some difficulty recalling spinal precautions, did not recall no lifting. PT is recommending pt return home with assist. Goals Bed Mobility Goal Independent Transfer Goal Independent,Front Wheeled Walker Gait Goal Independent,Front Wheel Walker Frequency of Treatment Frequency Of Treatment Twice a Day Treatment Plan Physical Therapy Treatment Plan Bed Mobility Training,Transfer Training,Gait Training, Therapeutic Exercise,Balance Retraining,Post Op Education, Discharge Planning,Hot or Cold Pack,Neuromuscular Re-ed, Coordination Retraining,Manual Therapy Precautions Lumbar Precautions Log Roll,No Twisting,Limit Bending,Lifting Restriction of 10 lbs,Gait Belt above Incisional Area Recommendations To Nursing Amount of Assist Needed 1 Person Assist Discharge Recommendations PT Discharge Recommendations Home with Assistance Transportation Needs at Discharge Private Vehicle
--- NOTE | 2024-01-28 09:49 | OT.IP.TRT ---
Current Diagnoses Spondylolisthesis, lumbar region (01/27/24) Spinal stenosis, lumbar region without neurogenic claudication (01/27/24) Arthrodesis status (01/27/24) Surgery Performed Operation Date: 01/27/24 07:45 Actual Procedures p L5-S1 TLIF-Robot - Shaji Wick MD Occupational Therapy Treatment Note M2 OT-IP Current Condition Start: 01/27/24 16:38 Freq: Status: Active Protocol: Document 01/27/24 16:38 CGR (Rec: 01/27/24 16:48 CGR [id number]) Occupational Therapy Current Condition Current Condition Evaluation Date 01/27/24 Treatment Diagnosis L5-S1 TLIF Diagnosis Onset Date 01/27/24 Post Operative Precautions Lumbar Precautions Log Roll,No Twisting,Limit Bending,Lifting Restriction of 10 lbs,Gait Belt above Incisional Area M3 OT- IP Subjective and Pain Start: 01/27/24 16:38 Freq: Status: Active Protocol: Document 01/28/24 10:00 CGR (Rec: 01/28/24 10:07 CGR [id number]) OT- Subjective Occupational Therapy Visit Type Type Treatment Note Visit Start Time 09:19 Visit Stop Time 09:49 Notes Pt planned for discharge home today. OT Pain Assessment Pain When Pain Assessed At Rest Pain Present Pain Present Pain Reported Location Lower Back Intensity 4 Scale Used Numeric (0 - 10) Management Techniques Modification of Treatment,Re- positioning,Timing of Activity with Medications M4 OT- IP ADL's Start: 01/27/24 16:38 Freq: Status: Active Protocol: Document 01/28/24 10:00 CGR (Rec: 01/28/24 10:07 CGR [id number]) OT [id number] Comments OT Self-Feeding Comments not meal time OT ADL-Grooming General Evaluation Grooming Ability Independent Areas Needing Assistance Face Washing Comments OT Grooming Comments standing at sink OT ADL-Oral Care General Eval Oral Care Ability Independent Areas of Assistance Brushing Teeth Comments Oral Care Comments standing at sink OT ADL-Dressing General Eval Upper Body Dressing Ability Independent Lower Body Dressing Ability Standby Assistance Areas Needing Assistance Pull-Over Shirt,Underpants/ Brief,Pants/Shorts,Socks,Shoes Assistive Devices Dressing Assistive Devices Sock Aid,Velcro Comments OT Dressing Comments Pt dressed for discharge with whipper and sock aid OT ADL-Toileting Comments OT Toileting Comments not performed OT ADL-Bathing Comments OT Bathing Comments not performed M5 OT- IP IADL's Start: 01/27/24 16:38 Freq: Status: Active Protocol: Document 01/27/24 16:38 CGR (Rec: 01/27/24 16:48 CGR [id number]) OT-Instrumental Activities of Daily Living Deficits IADL Deficits Identified No Deficits Home Safety Awareness Awareness of Need for Assistance at Home Good Awareness Ability to Problem Solve Emergency Able to Problem Solve Situations Medication Management Medication Management No Deficits Identified Money Management Money Management No Deficits Identified Meal Preparation Meal Preparation No Deficits Identified Drapery Cutter Machine Drapery Cutter Machine No Deficits Identified Driving Driving Comments Pt is an active otr owner operator truck driver. M6 OT- IP Functional Cognition Start: 01/27/24 16:38 Freq: Status: Active Protocol: Document 01/27/24 16:38 CGR (Rec: 01/27/24 16:48 CGR [id number]) Cognitive Factors Limiting Selfcare Function Cognitive Ability Level of Alertness Alert Patient Orientation Name,Age,Birthday,Month,Date, Year,Day of Week,Place, Situation Attention Span Ability Capable of Focused Attention, Capable of Sustained Attention Ability to Follow Commands Able to Follow Multi-Step Commands OT- Vision and Hearing OT- Hearing Assessment OT- Hearing Assessment WFL OT- Vision Assessment Vision History Cataracts Visual Acuity Glasses For Reading Visual Attentiveness WFL Occular Pursuits WFL Visual Convergence WFL M7 OT- IP Mobility and Balance Start: 01/27/24 16:38 Freq: Status: Active Protocol: Document 01/28/24 10:00 CGR (Rec: 01/28/24 10:07 CGR [id number]) OT- Bed Mobility Assessment Rolling Type of Rolling Roll to Left Level of Assistance Standby Assistance Scooting Scooting to Edge of Bed Independent OT-Transfer Assessment Sit to and From Stand Sit to and from Stand Independent,Standby Assistance Transfers Transfer Ability Independent,Standby Assistance Technique Transfer Destination Bed,Chair Transfer Technique Stand Step Pivot Devices Transfer Assistive Devices Gait Belt,Front Wheeled Walker Comments Mobility Comments Pt ambulated around the room. Pt needs VC to keep walker in front of patient with tranfers to sink. Pt needed VC for log roll performed twice for proper form. Pt's states understanding of log roll and will cue patient at home. Reviewed again verbally at end of session. OT- Gait Assessment Gait Gait Assistance Required: Independent,Standby Assistance Assistive Devices Assistive Device Gait Belt,Front Wheeled Walker OT- Balance Assessment Sitting Balance and Reactions Static Sitting Balance Ability Normal Dynamic Sitting Balance Ability Normal M8 OT- IP Objective Assessments Start: 01/27/24 16:38 Freq: Status: Active Protocol: Document 01/27/24 16:38 CGR (Rec: 01/27/24 16:48 CGR [id number]) OT Gross Range of Motion Upper Extremity Range of Motion Assessment Within Functional Limits OT Strength Upper Extremity Strength Assessment Within Functional Limits Comments Strength Comments 4+/5 OT- Coordination Assessment Upper Extremity Finger to Nose Test Within Functional Limits Finger Tapping Test Within Functional Limits OT-Muscle Tone Assessment Muscle Tone WNL Yes OT Sensation Assessment Edema Edema Absent M9 OT- IP Assessment and Plan Start: 01/27/24 16:38 Freq: Status: Active Protocol: Document 01/28/24 10:00 CGR (Rec: 01/28/24 10:07 CGR [id number]) OT Summary Assessment and Plan Potential Rehabilitation Potential Excellent Analytic Complexity at Evaluation Low Summary OT Impairments Pain,Functional Mobility, Dressing,Toileting,Bathing, Toilet Transfers,Shower Transfers,Activity Tolerance Progress Towards Goals Slow Progress due to Pain Assessment Summary Pt presents as a low complexity evaluation s/p admit for L5-S1 TLIF. Pt is progressing well and is likely safe for discharge home today . Pt has necessary home equipment and for support . Pt participated in further education and dressing today. Ready for discharge home. Goals Dressing Goal Independent,Airplane Technician,Sock Aid Toileting Goal Independent Bathing Goal Independent Toilet Transfer Goal Independent Shower Transfer Goal Independent Days to Meet Goals 1 Frequency of Treatment Other frequency 5x a week Treatment Plan OT Treatment Plan ADL Training,Functional Mobility,Patient/Family Education,Discharge Planning Other Treatment Recommendations and Next LB dressing, shower Treatment Focus Discharge Recommendations OT Discharge Recommendations Home with Assistance Transportation Needs at Discharge Private Vehicle
--- NOTE | 2024-01-28 09:56 | PM.DS.1 ---
History of Present Illness History of Present Illness Date Patient Seen: 01/28/24 Time Patient Seen: 09:57 Chief complaint: L5-S1 TLIF Narrative: Operative Date/Time/Diagnoses Date of procedure: 01/27/24 Time of procedure: 07:40 Pre-op diagnosis: 1. L5-S1 anterolisthesis 2. Lumbar foraminal stenosis Post-op diagnosis: same Procedure & Clinicians Procedure: 1. L5-S1 Postero-lateral and posterior interbody fusion 2. L5-S1 interbody cage placement. 3. L5-S1 decompressive laminectomy with bilateral facetecomies 4. L5-S1 Posterior non-segmental instrumentation 5. [place] of bone marrow from iliac crest 6. Utilization of microsurgical technique and operating microscope 7. Utilization of robotic assisted navigation Same procedure as scheduled: Yes Indications: Patient has been having chronic back pain and worsening lumbar radiculopathy. Patient was found have severe bilateral foraminal stenosis at L5-S1 and anterolisthesis correlating with his symptoms. Patient failed multiple conservative management with worsening pain weakness and numbness in his lower extremity. Patient has been having difficulty performing activity of daily living. After discussing risks benefits of treatment options, patient elected proceed with surgery. Surgeon: Shaji Wick Fire And Explosion Investigator: Gregoria Breaux Click Yes if Unassisted: No Anesthesia Type: General Operative Notes Closure Type: primary Prosthetic devices, grafts, tissues, transplants, or devices: Globus CREO MIS Screws, Rise cage Estimated Blood Loss (mL): 30 Blood products transfused: none Discharge Providers Provider Date of admission: 01/27/24 06:09 Discharge Date: 01/28/24 Primary care physician: Stephanei Esteban MD Consults: 01/27/24 11:07 Consult to Occupational Therapy Evaluate & Treat Comment: Physician Instructions: Evaluate and treat Consult to Physical Therapy Evaluate & Treat Comment: Physician Instructions: Evaluate and Treat Discharge provider: Gregoria Breaux PA-C Summary Hospital Course Discharge Diagnosis: L5-S1 anterolisthesis, Lumbar foraminal stenosis; s/p lumbar fusion Hospital Course: Mr Ma's hospital course was unremarkable. On the morning of POD# 1, he was sitting up in a chair fully dressed, feeling well, and wanted to go home. He was eating and voiding without difficulty and his pain was well-controlled with oral medication. He was evaluated by PT and did well; they had no concerns regarding his discharge. Exam Vital Signs (past 8 hours): - 01/28/24 08:00 Temperature 98.8 F Pulse Rate 67 Respiratory Rate 14 Blood Pressure 127/81 Pulse Oximetry 97 Oxygen Flow Rate 0 Oxygen Delivery Method Room Air Oxygen Flow Rate 0 Narrative Exam Narrative: 5/5 strength in hip flexors, quadriceps, hamstrings, PF, DF, EHL bilaterally. Sensation to light touch intact throughout BLE, calves soft and compressible. Dressings placed intraoperatively w/ old bloody drainage; no active discharge. 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 Thoracic aortic aneurysm without rupture Hyperlipidemia Hypothyroidism Mitral regurgitation DVT, lower extremity (~2016) Surgical History (Updated 01/28/24 @ 10:03 by Gregoria Breaux PA-C) Hx of transurethral resection of prostate History of skin graft Hx of lymph node excision History of total left hip replacement (2016) History of total right hip replacement (2017) History of total left knee replacement (2014) H/O right mastectomy (2000) Family History Mother Lung cancer Social History household members: spouse Smoking Status: Never smoker alcohol intake: current substance use type: does not use Discharge Assessment & Plan Assessment and Plan Assessment: L5-S1 anterolisthesis, Lumbar foraminal stenosis; s/p lumbar fusion Plan of Treatment: Discharge home, multimodal pain control, f/u in office as scheduled. Discharge Plan Discharge Plan Patient Disposition: Home Discharge orders & Medications Prescriptions: New oxycodone 5 mg Tablet 5 mg PO Q4-6H PRN (Reason: Pain, Moderate (4-6)) Qty: 40 0RF Continued tramadol 50 mg tablet 50 mg PO Q8H PRN (Reason: pain) Qty: 21 0RF PreserVision AREDS-2 250-90-40-1 mg Capsule 1 tab PO DAILY enoxaparin [Lovenox] 100 mg/mL Syringe 100 mg SUBCUT Q12H warfarin 7.5 mg tablet 7.5 mg PO SEEINSTR Patient Comments: 10mg M, Thurs/7.5mg rest losartan 25 mg tablet 25 mg PO QPM metoprolol succinate 25 mg tablet extended release 24 hr 25 mg PO QPM rosuvastatin 5 mg tablet 5 mg PO QPM Follow up/Referrals: Shaji Wick MD [Physician] - 02/16/24 2:10 pm ([facility] in [place]) Stephanie Esteban MD [Primary Care Provider] - Diet/Activity/Treatments Diet: Diet as Tolerated Activity: No deep bending or twisting at the waist. No lifting more than 10 pounds. Skin/Wound/Dressing Care Report to your healthcare provider any signs of infection, such as:: chills, fever, night sweats, unusual drainage and unusual redness Dressing: May shower; keep dressings as dry as possible. If dressings become wet or dirty, may remove and replace with clean, dry gauze. No bathing or otherwise soaking incisions. Do not apply any creams, lotions, or ointments to incisions. Visit Report/Discharge Packet Instructions: DI for Prescription Opioid Use, DI for Transforaminal Lumbar Interbody Fusion Stand Alone Forms: Patient Portal/API, Stroke Signs & Symptoms, Surgery Discharge Discharge Data Primary Care Provider: Stephanie Esteban
[2024-01-28] MEDS: OXYCODONE/APAP 5/325 PREPACK 1 BOTTLE MISC (10:35)
--- NOTE | 2024-01-28 10:56 | PC.NURSE ---
Day shift: Discharge instructions gone over with patient and patient's spouse. All questions answered, patient stated understanding. PIV removed prior to discharge. Back dressing changed prior to discharge. All belongings with patient, including bottle of pain medication provided by pharmacist Mika due to all pharmacies being closed today. CARA Lyle escorted patient via wheelchair to exit.
--- NOTE | 2024-01-28 12:52 | CM.DANOTE ---
Initial DCP Assessment Visit Note Reviewed EMR and team rounds for status updates. Met with pt/spouse at bedside to introduce self and role, pt was found to be alert/oriented, dressed, and preparing for home d/c. Pt lives independently at baseline with his spouse in their own home here in [place]. His transported him home after he was medically cleared for d/c. Pt/spouse denied an CM assistance or needs at this time. Payor: Medicare Attending: Dr. Wick Pt is a 78 year-old M post-op day 1 from a TLIF surgery. He has a hx of a prior TLIF on 09/23/23 with no lasting benefit. He has worsening lumbar pain with increased leg pain over the last 5-months. He has difficulty walking or standing due to the severity of the pain. He does not use an AD at baseline, but does have a walker for home recovery needs. He will f/u with Ortho in 2-weeks, and discuss OP PT at that time. Discharge Planning/Care Management CM Discharge Assessment Start: 01/28/24 12:50 Freq: Status: Discharge Protocol: Document 01/28/24 12:50 DPL (Rec: 01/28/24 12:51 DPL [id number]) Discharge Planning Assessment Assigned Online Marketing Strategist GENA Hammer Advance Directives? No History Provided By Patient,Medical Record Has Patient been admitted in last 30 No days? Prior Living Arrangements House Household Members spouse Type of transporation used prior to Drives own vehicle admit Independent with ADL's Yes Is patient alert and oriented? Yes Comment N/A Caregiver for Another No DME Already Rented / Owned Bath Bench,Elevated Toilet Seat,FWW / Walker Patient/Family Preference OP PT Therapy Barriers to Discharge No Discharge Plan Home Community Services Physical Therapy Transportation Arrangement Spouse Referrals Initiated None needed Whiteboard Updated in Patient Room with Yes name and ext. # of Online Marketing Strategist Review Status In Process Please Provide Date Initial DC 01/28/24 Assessment Was Performed Pre-Anesthesia Assessment Start: 01/21/24 08:29 Freq: Status: Discharge Protocol: Document 01/21/24 08:30 CAB (Rec: 01/21/24 09:32 CAB [id number]) Pre-Anesthesia Assessment PAC Comment Phone assessment Preferred Name Ed Patient Information Reviewed Via Phone Assessment Diagnostic Results BMP/CMP,CBC,EKG Primary Care Provider Stephanie Y Young Seen Specialist in Last 12 Months Yes Specialist Seen [place] [facility],Orthopedist Primary Language Japanese Preferred Language Japanese Char Filter Operator Helper Required No Height 177.8 cm Weight 97.522 kg Body Mass Index (BMI) 30.8 Hearing Ability Normal Visual Assist Glasses Dentition Type Teeth, Natural Present,Teeth, Missing Barriers to Learning None Hx Anesthesia Reactions No Hx Family Anesthesia Reaction No Hx Malignant Hyperthermia No Anesthesia Review Requested No Fire Control Mechanic No alcohol intake current alcohol intake frequency a few times a week Smoking Status Never smoker Substance Use Type does not use Pain Present Pain Reported Musculoskeletal Symptoms Abnormal Gait,Back Pain, Difficulty Walking,Radiating Pain into Limb History of Falling (Recent or History of Yes ) Patient is completely paralyzed or No completely immobile Mental Status Oriented to own ability Is patient on oxygen? No Does patient have SMITH/SOB No Hx Sleep Apnea No CPAP/BIPAP use not prescribed Currently Taking a Beta Giovanni Yes: Metoprolol Can You Climb a Flight of Stairs Without Yes SOB Hx Chest Pain No Hx SOB No Hx Syncope or Dizziness No Anti-Coagulant Therapy Yes: Warfarin-advised to hold 5 days prior per Cardiology Has a [place] [facility] Yes: Visit 08/14/[address] Chow Cardiac Testing No Hx Pacemaker/ICD No Pacemaker Rep Required? 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 DINORAH, Left TKA, Devices marker in right shoulder Received a COVID vaccine? Yes Comment No covid symptoms last 8 weeks Marital Status Lives With spouse Current Living Arrangements House Number of Floors (Floors) Two Floors Number of Stairs To Enter/Railing? 0 Support System Spouse Does the Patient Have Assistance After Yes Surgery Patient Discharge Plan Description Return Home Comment Pt advised one day length of stay per surgeon Feels Safe in Current Environment Yes Been Physically Hurt or Threatened By a No Person in Current Environment Do you have thoughts of harming yourself None or others? Are you currently considering suicide? No Do you have a plan to hurt yourself or No Plan others? Do You Have Any Spiritual Beliefs That No May Affect Your HC Choices? Do You Have Any Cultural Practices That No May Affect Your HC Choices? Comment Orthodox Who Can We Speak to About Patient's Care Family, friends Identifying Code for Release of Patient Declines to issue Information Health Care Proxy/Next of Kin Laila () Health Care Proxy Emergency Contact Name Christian (son) Moises (son) Emergency Contact Phone Number Christian: [phone] Moises: [phone] Advance Directives? No Power of Canoe Builder No PAC Instructions Durable medical equipment, Medications to take/avoid, Nasal antibiotic,No ETOH/ petroleum product on skin DOS, NPO,Post-op transportation,Pre -surgical wash,Sturdy shoes/ comfortable clothes,Do not bring valuables and remove jewelry
== END 2024-01-28 10:50 | disposition home or self-care (01) | DRG 402 ==
PROVIDERS: Admitting Provider Orthopaedic Surgery Orthopaedic Surgery of the Spine; PCP Internal Medicine; Referring Provider Physical Medicine & Rehabilitation Pain Medicine; Visit Provider Orthopaedic Surgery Orthopaedic Surgery of the Spine
PROC: 0SG30AJ Fusion of Lumbosacral Joint with Interbody Fusion Device, Posterior Approach, Anterior Column, Open Approach (ICD-10-PCS; principal; 2024-01-27 07:45)
DX: M43.17 Spondylolisthesis, lumbosacral region (principal); M48.061 Spinal stenosis, lumbar region without neurogenic claudication; M43.16 Spondylolisthesis, lumbar region; M54.16 Radiculopathy, lumbar region; M48.07 Spinal stenosis, lumbosacral region; I10 Essential (primary) hypertension; E78.5 Hyperlipidemia, unspecified; Z79.01 Long term (current) use of anticoagulants; Z86.718 Personal history of other venous thrombosis and embolism
CPT/HCPCS: 36415; 72100; 76000; 85610; 97162; 97165; 97530; 97535; C1713; C9290; J0171; J0330; J0690; J1100; J1171; J2405; J2704; J3010

== ENCOUNTER 2024-04-30 10:20 | Emergency (ER) | payer MEDICARE, OTHER, SELFPAY ==
[2024-01-27 11:07] VITALS: BMI 30.8
[2024-04-30 10:24] VITALS: BP 186/92; PULSE 70; RESP 14; TEMP 36.6; O2SAT 96; BMI 31.8
--- NOTE | 2024-04-30 10:46 | DI.RAD.S_ITS ---
PROCEDURE: XR HAND LT MIN 3V INDICATIONS: hand pain TECHNIQUE: 3 views of the hand(s) acquired. COMPARISON: None. FINDINGS: Bones: No fractures or dislocations. Carpal bones are normally aligned. No suspicious bony lesions. Soft tissues: No suspicious soft tissue calcifications. 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 on 04/30/2024 at 10:36
[2024-04-30 11:26] VITALS: PULSE 72
--- NOTE | 2024-04-30 11:42 | ED_ITS ---
HPI - Extremity Problem General Chief complaint: Extremity Problem,Nontraumatic Stated complaint: Left fingers swollen Time Seen by Provider: 04/30/24 10:47 Mode of arrival: Ambulatory History of Present Illness HPI Narrative: 78-year-old male [employer] left-handed has history of prior trigger finger problems, remote surgery, now having locking trigger finger problems with his left 5th finger, also some pain with range of motion of his index finger which is not locking at this time so far. His left finger has pain, locks in position when flex, but able to extend it with palpable reduction in discomfort. No fevers or chills or redness. No history of joint arthritis. Related Data Home Medications Medication Instructions Recorded Confirmed losartan 25 mg tablet 25 mg PO QPM 08/06/23 04/18/24 metoprolol succinate 25 mg 25 mg PO QPM 08/06/23 04/18/24 tablet,extended release 24 hr rosuvastatin 5 mg tablet 5 mg PO QPM 08/06/23 04/18/24 warfarin 7.5 mg tablet 7.5 mg PO SEEINSTR 08/06/23 04/18/24 vit C 250 mg-vit E 90 mg-zinc 40 1 tab PO DAILY 01/21/24 04/18/24 mg-copper 1 [id number] capsule (PreserVision AREDS-2) Previous Rx's Medication Instructions Recorded tramadol 50 mg tablet 50 mg PO Q8H PRN pain #21 tabs 11/30/23 oxycodone 5 mg tablet 5 mg PO Q4-6H PRN Pain, Moderate 01/28/24 (4-6) #40 tabs Allergies Allergy/AdvReac Type Severity Reaction Status Date / Time rivaroxaban [From XARELTO] Allergy Severe SKIN RASH Verified 04/18/24 09:16 iodine [IODINE] AdvReac Severe NAUSEA/VOMITING, Verified 04/18/24 09:16 TOPICAL APPLICATION OK Patient History Medical History (Updated 04/30/24 @ 11:52 by Kevin Magallanes MD) History of COVID-19 (04/2022) Melanoma Enlarged prostate HTN (hypertension) RBBB (right bundle branch block) Non-rheumatic mitral regurgitation 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 Thoracic aortic aneurysm without rupture Hyperlipidemia Hypothyroidism Mitral regurgitation DVT, lower extremity (~2017) Surgical History (Updated 01/28/24 @ 10:03 by Gregoria Breaux PA-C) Hx of transurethral resection of prostate History of skin graft Hx of lymph node excision History of total left hip replacement (2016) History of total right hip replacement (2016) History of total left knee replacement (2014) H/O right mastectomy (2000) Family History Mother Lung cancer Social History household members: spouse Smoking Status: Never smoker alcohol intake: current substance use type: does not use Smoking Status: Never smoker alcohol intake frequency: a few times a week Exam Narrative Exam Narrative: GENERAL: Well-developed patient, in mild distress. HEAD: Atraumatic. Normocephalic. EYES: Pupils equal round and reactive. Extraocular motions intact. No scleral icterus. No injection or drainage. ENT: Nose without bleeding, purulent drainage. Throat without erythema, tonsillar hypertrophy or exudate. Airway patent. NECK: Trachea midline. Non tender CARDIOVASCULAR: Regular rate and rhythm without murmurs, gallops, or rubs. RESPIRATORY: Clear to auscultation. Breath sounds equal bilaterally. No wheezes, rales, or rhonchi. GASTROINTESTINAL: Abdomen soft, non-tender, nondistended. EXTREMITIES: Left finger and hand without gross edema compared to the right, with flexion of his left finger there is some resistance with full extension t hat is overcome with palpable reduction, consistent with trigger finger on the left 5th finger. Normal range of motion your 5th index finger. No erythema or swelling. BACK: Nontender without deformity or crepitance. No flank tenderness. NEURO: AOx3. Motor functions grossly nonfocal SKIN: No rash or erythema of visible areas Initial Vital Signs Initial Vital Signs: Vital Signs Temperature 97.8 F 04/30/24 10:24 Pulse Rate 70 04/30/24 10:24 Respiratory Rate 14 04/30/24 10:24 Blood Pressure 186/92 H 04/30/24 10:24 Pulse Oximetry 96 04/30/24 10:24 Oxygen Delivery Method Room Air 04/30/24 10:24 Course Orders Ordered: ED Orders 04/30/24 10:46 XR hand LT min 3V Stat Vital Signs Vital signs: Vital Signs - 8 hr 04/30/24 10:24 Temperature 97.8 F Pulse Rate 70 Respiratory Rate 14 Blood Pressure 186/92 H Pulse Oximetry 96 Oxygen Delivery Method Room Air MDM - Extremity (Nontraumatic) Imaging Data Left hand x-ray series: Radiologist's Impression: [address] [address] XRay Report Signed Patient: Solomon Ma MR#: [id number] : 1945 Acct:[id number] Age/Sex: 78 / M Date of Service: 04/30/24 Loc: ED Accession Number: [id number] Procedure: XR hand LT min 3V Ordering Provider: Kevin Magallanes MD PROCEDURE: XR HAND LT MIN 3V INDICATIONS: hand pain TECHNIQUE: 3 views of the hand(s) acquired. COMPARISON: None. FINDINGS: Bones: No fractures or dislocations. Carpal bones are normally aligned. No suspicious bony lesions. Soft tissues: No suspicious soft tissue calcifications. 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 on 04/30/2024 at 10:36 MDM Narrative Medical decision making narrative: Left fifth finger trigger finger, pain but reduces, XRay negative, fu hand surgery Dr Rollins for possible injection and/or surgery Discharge Plan Departure Patient Disposition: Home Clinical Impression: Trigger finger of left hand Activity Restrictions/Additional Instructions: Left-handed, history of prior trigger finger, now with recent locking and discomfort left 5th finger, some discomfort without locking left index finger, on examination there was flexion and some resistance with extension of the 5th finger, but then overcome with reduction in extension. X-rays without fracture changes. Finger splint applied. Consider local steroid injection, contact information given for local orthopedic surgeon who happens to be a hand surgeon as well, Dr. Rollins. Contact his office later today/tomorrow, for close follow up to consider tendon steroid injection. Wear splint until follow up. Take [id number] pain medications as needed. Take your chronic pain medications as needed. Follow up with hand surgeon as above. Return earlier to this/nearest emergency department for any change worsening symptoms or any concerns prior. Prescriptions: No Action tramadol 50 mg tablet 50 mg PO Q8H PRN (Reason: pain) Qty: 21 0RF PreserVision AREDS-2 250-90-40-1 mg Capsule 1 tab PO DAILY oxycodone 5 mg Tablet 5 mg PO Q4-6H PRN (Reason: Pain, Moderate (4-6)) Qty: 40 0RF warfarin 7.5 mg tablet 7.5 mg PO SEEINSTR Patient Comments: 10mg M, Thurs/7.5mg rest losartan 25 mg tablet 25 mg PO QPM metoprolol succinate 25 mg tablet extended release 24 hr 25 mg PO QPM rosuvastatin 5 mg tablet 5 mg PO QPM Referrals: Benoit Rollins MD [Physician] - Stephanie Esteban MD [Primary Care Provider] - Stand Alone Forms: Patient Portal/API/Survey
[2024-04-30 12:11] VITALS: BP 168/70; PULSE 72; RESP 18; TEMP 36.7; O2SAT 98
== END 2024-04-30 12:08 | disposition home or self-care (01) ==
PROVIDERS: Emergency Provider Emergency Medicine; PCP Internal Medicine
DX: M65.352 Trigger finger, left little finger (principal)
CPT/HCPCS: 73130; 99281; 99283